=== PATIENT | male | born 1945 | race Caucasian/White ===

== ENCOUNTER → 2017-01-17 | Outpatient (CLI) | payer OTHER, MEDICARE ==
[~2017-01-17] MED LIST: ATOR-54 PO; LISI10TA PO; OMEP20CA59 PO; PSYL55.43 PO
--- NOTE | 2017-01-17 11:44 | DIAGNOSTIC IMAGING REPORT ---
LEFT KNEE 4 OR MORE CLINICAL HISTORY: Left knee pain COMPARISON STUDY: None. FINDINGS: No fracture or dislocation within the left knee. Mild cartilage space narrowing within the medial compartment of the right knee consistent with degenerative change. The left knee cartilage spaces are maintained for age. Tiny osteophytes at the tibial spines and lateral patellar within the left knee. No significant knee effusion. Small focus of calcification adjacent to the left medial femoral condyle. This is likely due to an old MCL injury. IMPRESSION: 1. Minor degenerative changes within the bilateral knees. 2. No acute fracture or dislocation. 3. Suspect an old left MCL injury. Electronically signed by: Kimo Curtis M.D. 01/17/2017 11:43 AM Dictated Date/Time: 01/17/2017 11:41 AM
== END | disposition home or self-care (01) ==
LOC: C.RDSM 11:00
PROVIDERS: ATTEND Physical Medicine & Rehabilitation Sports Medicine
DX: M25.562 Pain in left knee (principal)

== ENCOUNTER → 2017-06-25 | Outpatient (CLI) | payer OTHER, MEDICARE ==
[2017-06-25 12:16] LABS: BASO % 0.9 %; BASO ABS # 0.08 K/uL (0-0.2); COMPLETE YES; EOS % 4.2 %; HEMATOCRIT 42.6 % (42-52); IG% 0.2 %; LYMPH % 22.2 %; LYMPH ABS # 1.94 K/uL (1.2-3.4); MEAN CELL VOLUME 89.7 fL (80-100); MEAN CORPUSCULAR HEMOGLOBIN 30.1 pg (25-34); MEAN CORPUSCULAR HGB CONC 33.6 g/dl (32-36); MEAN PLATELET VOLUME 10.4 fL (7.4-10.4); MONO % 8.1 %; NEUT % 64.4 %; PLATELET COUNT 137 K/uL (130-400); RED BLOOD COUNT 4.75 M/uL (4.7-6.1); WHITE BLOOD COUNT 8.73 K/uL (4.8-10.8)
[2017-06-25 12:26] LABS: ALT/SGPT 22 U/L (12-78); BLOOD UREA NITROGEN 12 mg/dl (7-18); BUN/CREATININE RATIO 15.9 (10-20); CALCIUM 8.8 mg/dl (8.5-10.1); CARBON DIOXIDE 29 mmol/L (21-32); CHLORIDE 105 mmol/L (98-107); CHOLESTEROL 91 mg/dl (0-200); CREATININE 0.74 mg/dl (0.60-1.40); GLUCOSE 100 mg/dl (70-99); POTASSIUM 4.1 mmol/L (3.5-5.1); SODIUM 138 mmol/L (136-145); TRIGLYCERIDES 41 mg/dl (0-150); VERY LOW DENSITY LIPOPROT CALC 8 mg/dl
[2017-06-25 12:38] LABS: URINE APPEARANCE CLEAR (CLEAR); URINE BILIRUBIN NEG (NEG); URINE COLOR YELLOW; URINE NITRITE NEG (NEG); URINE PH 7.5 (4.5-7.5); UROBILINOGEN NEG (NEG)
[2017-06-25 12:39] LABS: ALB/GLOB RATIO 1.3 (0.9-2); ALKALINE PHOSPHATASE 73 U/L (45-117); AST/SGOT 18 U/L (15-37); CHOLESTEROL/HDL RATIO 2.3; HDL CHOLESTEROL 40 mg/dl; LDL CHOLESTEROL CALCULATED 43 mg/dl; THYROID STIMULATING HORMONE 0.565 uIu/ml (0.300-4.500)
[2017-06-25 12:51] LABS: MANUAL MICROSCOPIC REQUIRED? NO; REVIEW REQ? NO
== END | disposition home or self-care (01) ==
LOC: C.LABBFT 09:39
PROVIDERS: ATTEND Internal Medicine Pulmonary Disease
DX: Q23.1 Congenital insufficiency of aortic valve (principal); K21.0 Gastro-esophageal reflux disease with esophagitis; E78.5 Hyperlipidemia, unspecified; I10 Essential (primary) hypertension; Z12.5 Encounter for screening for malignant neoplasm of prostate

== ENCOUNTER → 2018-06-27 | Outpatient (CLI) | payer OTHER, MEDICARE ==
[2018-06-27 13:07] LABS: BASO % 0.9 %; BASO ABS # 0.08 K/uL (0-0.2); EOS % 4.4 %; HEMATOCRIT 42.8 % (42-52); HEMOGLOBIN 14.7 g/dL (14.0-18.0); IG# 0.03 K/uL (0.00-0.02); LYMPH % 22.6 %; LYMPH ABS # 2.07 K/uL (1.2-3.4); MEAN CELL VOLUME 89.4 fL (80-100); MEAN CORPUSCULAR HEMOGLOBIN 30.7 pg (25-34); MEAN CORPUSCULAR HGB CONC 34.3 g/dl (32-36); MEAN PLATELET VOLUME 11.5 fL (7.4-10.4); MONO % 7.3 %; MONO ABS # 0.67 K/uL (0.11-0.59); NEUT % 64.5 %; PLATELET COUNT 134 K/uL (130-400); RED CELL DISTRIBUTION WIDTH CV 13.5 % (11.5-14.5); RED CELL DISTRIBUTION WIDTH SD 44.2 fL (36.4-46.3); WHITE BLOOD COUNT 9.15 K/uL (4.8-10.8)
[2018-06-27 13:18] LABS: HEMOGLOBIN A1C 5.6 % (4.5-5.6)
[2018-06-27 13:33] LABS: ALBUMIN 3.6 gm/dl (3.4-5.0); ALKALINE PHOSPHATASE 81 U/L (45-117); ALT/SGPT 19 U/L (12-78); AST/SGOT 16 U/L (15-37); BLOOD UREA NITROGEN 14 mg/dl (7-18); CALCIUM 8.6 mg/dl (8.5-10.1); CARBON DIOXIDE 25 mmol/L (21-32); CHOLESTEROL 91 mg/dl (0-200); CREATININE 0.78 mg/dl (0.60-1.40); GLUCOSE 98 mg/dl (70-99); LDL CHOLESTEROL CALCULATED 44 mg/dl; POTASSIUM 4.2 mmol/L (3.5-5.1); SODIUM 135 mmol/L (136-145); TOTAL PROTEIN 6.6 gm/dl (6.4-8.2)
== END | disposition home or self-care (01) ==
LOC: C.LABBFT 08:53
PROVIDERS: ATTEND Internal Medicine Pulmonary Disease
DX: E78.5 Hyperlipidemia, unspecified (principal)

== ENCOUNTER 2022-12-19 11:41 | Inpatient (IN) ==
[2022-12-19] MEDS ORDERED: diphenhydrAMINE 50 MG/ML VIAL IV STA (12:01)
[2022-12-19] MEDS ORDERED: SODIUM CHLORIDE 0.9% 1000ML 1,000 ML IV ONE (12:01)
[2022-12-19] MEDS ORDERED: FAMOTIDINE 20MG IV PUSH 20 MG/5 ML SYR IV STA (12:01)
[2022-12-19] MEDS ORDERED: ONDANSETRON INJ 2 MG/ML 2 ML VIAL IV STA (12:01)
--- NOTE | 2022-12-19 12:14 | Emergency Department Note ---
Impression & Plan Generalized weakness, Constipation, Intractable nausea and vomiting, Acute urinary retention ED Provider Note NAME: LINNETTE MARISCAL AGE: 77 SEX: M ARRIVES VIA: Ambulance INFORMANT: Patient ED PROVIDER(S): Avtar Johansen MD CHIEF COMPLAINT: Weakness, n/v PLAN: Disposition: Admit MEDICAL DECISION MAKING: The patient is a pleasant 77-year-old gentleman with a past medical history of CAD, hypertension, hyperlipidemia, history of bioprosthetic aortic valve, GERD, who presents to the emergency department via EMS for acute onset nausea and vomiting with dizziness/generalized weakness that began approximate 2 hours prior to arrival. He reports he awoke this morning feeling well and denies any recent fevers, chills, cough, congestion, urinary symptoms. He reports he did his moves his bowels this morning and that was normal. The patient denies chest pain or focal extremity weakness. On arrival patient is uncomfortable but in no acute distress, afebrile with blood pressure 170s/80s and otherwise VS stable. He appears clinically dry. He has moderate epigastric discomfort without discrete tenderness. He has generalized weakness without focal neurologic deficits. EKG without overt acute ischemia. Chest x-ray with likely atelectasis. WBC 13.5K nonspecific. H/H and platelets within normal limits. Chemistry without metabolic acidosis. Electrolytes LFTs without significant abnormality. BUN/creatinine> 20 consistent with the patient's clinically dry appearance. High-sensitivity troponin 8.5, within normal limits. Lipase within normal limits. CT of the abdomen pelvis was performed and did not demonstrate acute intra-abdominal process. However note is made of moderate stool within the colon and rectum. On reevaluation patient did have some improvement after IV fluid hydration, Pepcid, Zofran, diphenhydramine and Compazine. However still with generalized weakness. On ambulatory trial patient did require assist which is not patient's baseline. Given the persistence of his weakness agrees with plan for admission. Suspect symptoms may be related to component of dehydration with nausea and vomiting provoked by his history of acid reflux as well as component of constipation. Case was discussed with Dr. Mathis, [facility] hospitalist, who will evaluate the patient for admission. Triage Nursing notes reviewed and agree them. Prior/outside medical records reviewed Vital Signs: reviewed Differential diagnosis: Gastroenteritis, food borne illness, infections, appendicitis, diverticulitis, inflammatory bowel disease, obstruction, GI bleed, biliary pathology, volvulus, as well as other pathologies. ER treatment provided: See below. Diagnostics interpreted by me: ECG: Sinus bradycardia, 51 bpm, no ectopy, no overt ST elevation or depression, QTc 414, QRS 88 Cardiac Monitoring: An order for continuous cardiac monitoring was placed and demonstrated Sinus bradycardia, 51 bpm, no ectopy Laboratory studies: See below Imaging studies: See below Consultation(s): Dr. Mathis, [facility] hospitalist. HPI: The patient is a pleasant 77-year-old gentleman with a past medical history of CAD, hypertension, hyperlipidemia, history of bioprosthetic aortic valve, GERD, who presents to the emergency department via EMS for acute onset nausea and vomiting with dizziness/generalized weakness that began approximate 2 hours prior to arrival. He reports he awoke this morning feeling well and denies any recent fevers, chills, cough, congestion, urinary symptoms. He reports he did his moves his bowels this morning and that was normal. The patient denies chest pain or focal extremity weakness. ROS: See above HPI for pertinent positives & negatives. A total of 10 systems reviewed and were otherwise negative. VITALS:See Below PHYSICAL EXAMINATION: GENERAL: Awake, alert, uncomfortable-appearing, in no distress HENT: Normocephalic, atraumatic. Oropharynx with dry mucous membranes and otherwise unremarkable. EYES: Normal conjunctiva. Sclera non-icteric. EOMI. No nystamgus. PEARRL. NECK: Supple. No nuchal rigidity. FROM. No JVD. RESPIRATORY: Clear to auscultation. CARDIAC: Regular rate, normal rhythm. Extremities warm and well perfused. Pulses equal. ABDOMEN: Soft, non-distended. No tenderness to palpation. No rebound or guarding. No masses. RECTAL: Deferred. MUSCULOSKELETAL: Chest examination reveals no tenderness. The back is symmetrical on inspection without obvious abnormality. There is no CVA tenderness to palpation. No joint edema. LOWER EXTREMITIES: Calves are equal size bilaterally and non-tender. No edema. No discoloration. NEURO: No focal sensory or motor deficits noted. Speech is fluent. Generalized weakness generalized weakness without focal extremity weakness. SKIN: No rash or jaundice noted. Avtar Johansen MD Past Med/Surg History Medical History Achilles tendinitis of right lower extremity Adenomatous colon polyp Atherosclerotic heart disease of [place] coronary artery without angina pectoris Chronic reflux esophagitis Compression fracture of L1 lumbar vertebra Compression fracture of L3 vertebra Diverticulosis Dyslipidemia Esophageal reflux disease Hypertension Inhibited sexual excitement Lumbar radiculopathy Mitral valve disorder Obstructive sleep apnea Prostate cancer (12/10/19) Sacroiliitis Severe obstructive sleep apnea Surgical History History of aortic valve replacement (~2011) Bioprosthetic valve - 2011 History of excision of lesion Skin cancer removed from nose History of excision of pilonidal cyst History of surgery Uvula surgery for sleep apnea Hx of colonoscopy (~2018) Sigmoid divertics; Rectal angioectasis; 4 mm polyp Family History Father , 73yo Stroke syndrome Myocardial infarction Mother , 76yo Alzheimer disease Brother No problems noted. Brother , 1/2 brother Myocardial infarction Aortic valve problem as well Brother , 1/2 brother - unknown history Medical history unknown Sister No problems noted. Sister , 1/2 sister Medical history unknown Son No problems noted. Son No problems noted. Son No problems noted. Daughter No problems noted. Social History Smoking Status: Former smoker Cigarettes Per Day: 1-2 PPD x 20yrs;Quit 1975; Second Hand Exposure: No; Hx Alcohol Use: No Hx Substance Use: No Preferred Language: Irish Communication Ability: Effective Visual Impairment: No Limitations Hearing Ability: Normal Hoister Required: No Beliefs That Will Affect Care: None marital status: Current Living Situation: Spouse and Other current occupational status: retired current occupation: Worked at [employer] Feels Safe at Home: Yes caffeine: No during the past year weight has: remained stable Assistive Devices: Glasses Allergies Allergies Allergy/AdvReac Type Severity Reaction Status Date / Time No Known Allergies Allergy Verified 12/19/22 15:47 Home Meds Home Medications Medication Instructions Recorded Confirmed cholecalciferol (vitamin D3) 50 2,000 units PO DAILY 06/16/19 12/19/22 mcg (2,000 unit) tablet magnesium 250 mg tablet 250 mg PO DAILY 12/05/19 12/19/22 ascorbic acid (vitamin C) 500 mg 1,000 mg PO DAILY 04/07/20 12/19/22 tablet potassium gluconate 595 mg (99 mg) 595 mg PO DAILY 04/07/20 12/19/22 tablet psyllium husk 3.4 gram/5.4 gram 2 tsp PO DAILY 04/07/20 12/19/22 oral powder (Metamucil) aspirin 81 mg chewable tablet 81 mg PO DAILY 04/16/22 12/19/22 glucosamine HCl 750 mg tablet 750 mg PO DAILY 04/16/22 12/19/22 atorvastatin 40 mg tablet 40 mg PO DAILY 12/19/22 12/19/22 calcium carbonate 500 mg calcium 500 mg PO BID 12/19/22 12/19/22 (1,250 mg) tablet denosumab 60 mg/mL subcutaneous 60 mg subcut DIRECTED 12/19/22 12/19/22 syringe (Prolia) lisinopril 5 mg tablet 5 mg PO DAILY 12/19/22 12/19/22 omeprazole 20 mg capsule,delayed 20 mg PO DAILY 12/19/22 12/19/22 release zinc gluconate 50 mg tablet 50 mg PO DAILY 12/19/22 12/19/22 Previous Rx's Medication Instructions Recorded BiPap Machine #1 [id number] 03/16/21 Results & Data (ED) Vital Signs Vital Signs - 24 hr 12/19/22 12:33 12/19/22 15:06 12/19/22 15:08 Pulse Rate 67 Pulse Rate [Apical] 65 Pulse Rate from SpO2 Sensor Respiratory Rate 20 18 Respiratory Effort / Characteristics Non-Labored Spontaneous Non-Labored Respiratory Depth Normal Normal Respiratory Pattern Regular Blood Pressure 174/81 H Blood Pressure [Right Arm] 139/66 Blood Pressure Mean 112 Blood Pressure Mean [Right Arm] 90 Pulse Oximetry 97 94 95 Oxygen Delivery Method Room Air Sepsis Recent Fever Within 48 Hours No Sepsis New/Unexplained Change in Mental Status N/A Sepsis Action Taken by Nursing No Action Required 12/19/22 12:44 12/19/22 13:00 12/19/22 15:02 Pulse Rate 61 57 L 65 Pulse Rate [Apical] Pulse Rate from SpO2 Sensor Respiratory Rate 19 18 14 Respiratory Effort / Characteristics Respiratory Depth Respiratory Pattern Blood Pressure Blood Pressure [Right Arm] Blood Pressure Mean Blood Pressure Mean [Right Arm] Pulse Oximetry Oxygen Delivery Method Sepsis Recent Fever Within 48 Hours Sepsis New/Unexplained Change in Mental Status Sepsis Action Taken by Nursing 12/19/22 15:08 12/19/22 15:08 12/19/22 15:30 Pulse Rate 56 L Pulse Rate [Apical] Pulse Rate from SpO2 Sensor 58 L Respiratory Rate 14 Respiratory Effort / Characteristics Respiratory Depth Respiratory Pattern Blood Pressure 139/66 137/69 Blood Pressure [Right Arm] Blood Pressure Mean 90 91 Blood Pressure Mean [Right Arm] Pulse Oximetry 96 Oxygen Delivery Method Sepsis Recent Fever Within 48 Hours Sepsis New/Unexplained Change in Mental Status Sepsis Action Taken by Nursing 12/19/22 15:30 12/19/22 16:00 12/19/22 16:00 Pulse Rate 55 L 58 L Pulse Rate [Apical] Pulse Rate from SpO2 Sensor 55 L 58 L Respiratory Rate 15 13 Respiratory Effort / Characteristics Respiratory Depth Respiratory Pattern Blood Pressure 153/70 H Blood Pressure [Right Arm] Blood Pressure Mean 97 Blood Pressure Mean [Right Arm] Pulse Oximetry 97 95 Oxygen Delivery Method Sepsis Recent Fever Within 48 Hours Sepsis New/Unexplained Change in Mental Status Sepsis Action Taken by Nursing 12/19/22 16:30 12/19/22 16:30 Pulse Rate 56 L Pulse Rate [Apical] Pulse Rate from SpO2 Sensor 56 L Respiratory Rate 18 Respiratory Effort / Characteristics Respiratory Depth Respiratory Pattern Blood Pressure 139/67 Blood Pressure [Right Arm] Blood Pressure Mean 91 Blood Pressure Mean [Right Arm] Pulse Oximetry 94 Oxygen Delivery Method Sepsis Recent Fever Within 48 Hours Sepsis New/Unexplained Change in Mental Status Sepsis Action Taken by Nursing Laboratory Data Attestation: I reviewed the patient's lab results. 12/19/22 11:55 12/19/22 11:55 Lab Results 12/19/22 12/19/22 12/19/22 Range/Units 11:55 11:55 12:22 WBC 13.54 H (4.8-10.8) K/ul RBC 5.04 (4.70-6.10) M/uL Hgb 15.2 (14.0-18.0) g/dl POC Hgb 15.3 (14.0-18.0) g/dl Hct 43.3 (42.0-52.0) % POC Hct 45 (42-52) % MCV 85.9 (80.0-100.0) fL MCH 30.2 (25.0-34.0) pg MCHC 35.1 (32.0-36.0) g/dL RDW Std Deviation 39.8 (36.4-46.3) fL RDW Coeff of Lucina 13.0 (11.5-14.5) % Plt Count 182 (130-400) K/uL MPV 10.4 (9.4-12.4) fL Immature Gran % (Auto) 1.5 % Neut % (Auto) 69.7 % Lymph % (Auto) 20.2 % Loving % (Auto) 6.1 % Eos % (Auto) 1.8 % Baso % (Auto) 0.7 % Neut # (Auto) 9.45 H (1.40-6.50) K/uL Lymph # (Auto) 2.74 (1.2-3.4) K/uL Loving # (Auto) 0.82 H (0.11-0.59) K/uL Eos # (Auto) 0.24 (0-0.50) K/uL Baso # (Auto) 0.09 (0-0.2) K/uL Immature Gran # (Auto) 0.20 (0.01-0.20) K/uL POC Sodium 139 (135-144) mmol/L Sodium 139 (136-145) mmol/L POC Potassium 3.6 (3.3-5.0) mmol/L Potassium 3.7 (3.5-5.1) mmol/L POC Chloride 105 (101-112) mmol/L Chloride 106 (98-107) mmol/L Carbon Dioxide 23 (21-32) mmol/L POC Total CO2 22 L (24-31) mmol/L Anion Gap 10 (3-11) POC Anion Gap 16.0 (16-25) mmol/L POC BUN 16 (7-18) mg/dl BUN 18 (6-23) mg/dl Creatinine 0.81 (0.6-1.4) mg/dl POC Creatinine 0.8 (0.6-1.3) mg/dl Est Cr Clr Drug Dosing 77.6 ml/min Est GFR ( Amer) 98.7 ml/min Est GFR (Non-Af Amer) 85.1 ml/min BUN/Creatinine Ratio 22.2 H (10-20) Glucose 170 H (70-99(Fasting)) mg/dl POC Glucose (other) 173 H (70-99) mg/dl Calcium 9.3 (8.5-10.1) mg/dl POC Ioniz Calcium [place] 1.16 (1.12-1.32) mmol/l Phosphorus 2.9 (2.5-4.9) mg/dl Magnesium 2.0 (1.7-2.4) mg/dl Total Bilirubin 0.9 (0.2-1.0) mg/dl AST 18 (13-39) U/L ALT 17 (7-52) U/L Alkaline Phosphatase 89 (34-104) U/L Troponin I High Sens 8.5 (0-20) pg/ml Total Protein 7.1 (6.0-8.3) gm/dl Albumin 4.1 (3.4-5.0) gm/dl Globulin 3.0 (2.5-4.0) gm/dl Albumin/Globulin Ratio 1.4 (0.9-2) Lipase 40 (11-82) U/L Urine Color Urine Appearance (Clear) Urine pH (4.5-7.5) Ur Specific [place] (1.000-1.030) Urine Protein (Negative) Urine Glucose (UA) (Negative) Urine Ketones (Negative) Urine Blood (Negative) Urine Nitrite (Negative) Urine Bilirubin (Negative) Urine Urobilinogen (Negative) Ur Leukocyte Esterase (Negative) SARS-CoV-2, RNA, NAAT (NEGATIVE) 12/19/22 12/19/22 Range/Units 13:39 15:03 WBC (4.8-10.8) K/ul RBC (4.70-6.10) M/uL Hgb (14.0-18.0) g/dl POC Hgb (14.0-18.0) g/dl Hct (42.0-52.0) % POC Hct (42-52) % MCV (80.0-100.0) fL MCH (25.0-34.0) pg MCHC (32.0-36.0) g/dL RDW Std Deviation (36.4-46.3) fL RDW Coeff of Lucina (11.5-14.5) % Plt Count (130-400) K/uL MPV (9.4-12.4) fL Immature Gran % (Auto) % Neut % (Auto) % Lymph % (Auto) % Loving % (Auto) % Eos % (Auto) % Baso % (Auto) % Neut # (Auto) (1.40-6.50) K/uL Lymph # (Auto) (1.2-3.4) K/uL Loving # (Auto) (0.11-0.59) K/uL Eos # (Auto) (0-0.50) K/uL Baso # (Auto) (0-0.2) K/uL Immature Gran # (Auto) (0.01-0.20) K/uL POC Sodium (135-144) mmol/L Sodium (136-145) mmol/L POC Potassium (3.3-5.0) mmol/L Potassium (3.5-5.1) mmol/L POC Chloride (101-112) mmol/L Chloride (98-107) mmol/L Carbon Dioxide (21-32) mmol/L POC Total CO2 (24-31) mmol/L Anion Gap (3-11) POC Anion Gap (16-25) mmol/L POC BUN (7-18) mg/dl BUN (6-23) mg/dl Creatinine (0.6-1.4) mg/dl POC Creatinine (0.6-1.3) mg/dl Est Cr Clr Drug Dosing ml/min Est GFR ( Amer) ml/min Est GFR (Non-Af Amer) ml/min BUN/Creatinine Ratio (10-20) Glucose (70-99(Fasting)) mg/dl POC Glucose (other) (70-99) mg/dl Calcium (8.5-10.1) mg/dl POC Ioniz Calcium [place] (1.12-1.32) mmol/l Phosphorus (2.5-4.9) mg/dl Magnesium (1.7-2.4) mg/dl Total Bilirubin (0.2-1.0) mg/dl AST (13-39) U/L ALT (7-52) U/L Alkaline Phosphatase (34-104) U/L Troponin I High Sens (0-20) pg/ml Total Protein (6.0-8.3) gm/dl Albumin (3.4-5.0) gm/dl Globulin (2.5-4.0) gm/dl Albumin/Globulin Ratio (0.9-2) Lipase (11-82) U/L Urine Color Yellow Urine Appearance Clear (Clear) Urine pH 6.5 (4.5-7.5) Ur Specific [place] 1.012 (1.000-1.030) Urine Protein Negative (Negative) Urine Glucose (UA) Negative (Negative) Urine Ketones Trace H (Negative) Urine Blood Negative (Negative) Urine Nitrite Negative (Negative) Urine Bilirubin Negative (Negative) Urine Urobilinogen Negative (Negative) Ur Leukocyte Esterase Negative (Negative) SARS-CoV-2, RNA, NAAT NEGATIVE (NEGATIVE) Administered Medications Calcium Carbonate (Calcium Carbonate 500 Mg Chewable Tab) 500 mg PO BID ANNEMARIE Stop: 01/18/23 20:59 Last Admin: 12/19/22 20:48 Dose: 500 mg Documented By: KENROY Sodium Chloride (Nss 1000ml) 1,000 mls @ 80 mls/hr IV .[id number] ANNEMARIE Stop: 01/18/23 17:36 Last Admin: 12/19/22 18:22 Dose: 80 mls/hr Documented By: STACEY Ondansetron HCl (Ondansetron Inj 2 Mg/Ml 2 Ml Vial) 4 mg IV Q6H PRN PRN Reason: Nausea Stop: 01/18/23 17:36 Last Admin: 12/20/22 00:47 Dose: 4 mg Documented By: KENROY Discontinued Medications Diphenhydramine HCl (Diphenhydramine 50 Mg/Ml Vial) 12.5 mg IV NOW STA Stop: 12/19/22 12:02 Last Admin: 12/19/22 12:11 Dose: 12.5 mg Documented By: KARMEN Glycerin (Glycerin Adult 12 Supp/Box Supp) 1 supp TX NOW ONE Stop: 12/19/22 15:25 Last Admin: 12/19/22 15:46 Dose: 1 supp Documented By: STACEY Sodium Chloride (Nss 1000ml) 1,000 mls @ 999 mls/hr IV .[id number] ONE Stop: 12/19/22 13:01 Last Infusion: 12/19/22 13:23 Dose: 0 mls/hr Documented By: Admin: 12/19/22 12:09 Dose: 999 mls/hr Documented By: KARMEN Famotidine (Pepcid 20mg Iv Push) 20 mg in 5 mls @ 2.5 mls/min IV NOW STA Stop: 12/19/22 12:02 Last Admin: 12/19/22 12:12 Dose: 2.5 mls/min Documented By: KARMEN Prochlorperazine (Compazine) 1 mls @ 1 mls/min IV ONE ONE Stop: 12/19/22 13:42 Last Admin: 12/19/22 13:49 Dose: 1 mls/min Documented By: ROSE Ioversol (Optiray 350 100ml) 84 ml IV ONCE ONE Stop: 12/19/22 14:03 Last Admin: 12/19/22 14:02 Dose: 84 ml Documented By: NURYS Ondansetron HCl (Ondansetron Inj 2 Mg/Ml 2 Ml Vial) 4 mg IV NOW STA Stop: 12/19/22 12:02 Last Admin: 12/19/22 12:13 Dose: 4 mg Documented By: KARMEN Imaging Data Radiologist's Impression: Chest X-Ray 12/19/22 12:01 XR chest 1V portable CLINICAL HISTORY: Chest pain, nonspecific COMPARISON STUDY: Chest radiograph January 15, 2019. FINDINGS: Lung volumes are mildly diminished. There is no pneumothorax or pleural effusion. Bibasilar opacities favor atelectasis. There are median sternotomy wires. Cardiomegaly is noted with pulmonary vascular congestion. There is no evidence for overt pulmonary edema. Right suprahilar fullness is present. IMPRESSION: 1. Cardiomegaly with pulmonary vascular congestion. 2. Bibasilar opacities suggestive of atelectasis. 3. Right suprahilar fullness. This likely reflects pulmonary vessels but can be assessed with follow-up PA and lateral chest radiographs. ACT 112: Negative or not required by law. Electronically signed by: Antelmo Santos M.D. 12/19/2022 12:55 PM Abdomen/Pelvis CT 12/19/22 12:10 CT OF THE ABDOMEN AND PELVIS WITH CONTRAST CLINICAL HISTORY: Abdominal pain, nausea and vomiting. COMPARISON STUDY: Treatment planning CT May 06, 2020. TECHNIQUE: Following IV administration of 84 mL of Optiray, axial images of the abdomen and pelvis were obtained from the lung bases to the proximal femurs. Images were reviewed in the axial, sagittal, and coronal planes. IV contrast was administered without complication. Automated exposure control was utilized for the study. A dose lowering technique was utilized adhering to the principles of ALARA. CT DOSE: 380.81 mGy.cm FINDINGS: This exam is mildly compromised by motion artifact. There is a prosthetic aortic valve. Median sternotomy wires are noted. A small hiatal hernia is present. No pneumatosis, free air or portal venous gas is present. The liver, spleen, adrenal glands, kidneys and pancreas are unremarkable. There is no biliary or pancreatic ductal dilatation. No hydronephrosis. Excreted contrast within the collecting systems is noted. Colonic diverticulosis is noted without evidence for acute diverticulitis. A moderate amount of stool within the colon is present. Small bowel loops slightly extends into a left inguinal hernia. There is no resultant bowel obstruction. Fat-containing right inguinal hernia is present. The appendix is normal. A 3.1 cm infrarenal abdominal aortic aneurysm is present. There is no abdominal or pelvic lymphadenopathy. There are fiducial markers within the prostate. No suspicious osseous lesions are identified within visualized skeletal structures. There are old L1 and L3 compression fractures, similar to MRI June 07, 2022. There is a mild compression fracture of the superior endplate of T11. This is age indeterminate. IMPRESSION: 1. No acute process within the abdomen or pelvis. 2. Moderate amount of stool within the rectum. No evidence for a bowel obstruction. 3. Colonic diverticulosis. No evidence for acute diverticulitis. 4. Mild T11 compression fracture which is subacute to acute. Old L1 and L3 compression fractures. 5. 3.1 cm infrarenal abdominal aortic aneurysm. 6. Bilateral inguinal hernias. Loop of small bowel extends into the left internal hernia without resultant bowel obstruction. ACT 112: Negative or not required by law. Electronically signed by: Antelmo Santos M.D. 12/19/2022 2:33 PM Discharge Plan Visit Data Chief Complaint: Vomiting Stated Complaint: NAUSEA, VOMITING, DIZZINESS ED Provider: Avtar Johansen Discharge Problem: Generalized weakness, Constipation, Intractable nausea and vomiting, Acute urinary retention Patient Disposition: Admitted As Inpatient Discharge Instructions Interventions: ED Discharge Assessment Last Done: 12/19/22 17:38
--- NOTE | 2022-12-19 12:23 | Electrocardiogram Report ---
Test Reason : Blood Pressure : / mmHG Vent. Rate : 051 BPM Atrial Rate : 051 BPM P-R Int : 196 ms QRS Dur : 088 ms QT Int : 450 ms P-R-T Axes : 061 035 057 degrees QTc Int : 414 ms Poor data quality, interpretation may be adversely affected Sinus bradycardia Left atrial enlargement Borderline ECG No previous ECGs available Confirmed by Tian Camarillo ([id number]) on 12/19/2022 12:23:44 PM Referred By: REFERRED SELF Confirmed By:Tian Camarillo
[2022-12-19 12:38] LABS: iSTAT Creatinine 0.8 mg/dl (0.6-1.3); iSTAT Hemoglobin 15.3 g/dl (14.0-18.0); iSTAT Ionized Calcium 1.16 mmol/l (1.12-1.32); iSTAT Potassium 3.6 mmol/L (3.3-5.0)
[2022-12-19 12:42] LABS: Basophils # (auto) 0.09 K/uL (0-0.2); Basophils % (auto) 0.7 %; Eosinophils # (auto) 0.24 K/uL (0-0.50); Eosinophils % (auto) 1.8 %; Hematocrit (blood only) 43.3 % (42.0-52.0); Hemoglobin 15.2 g/dl (14.0-18.0); Immature Granulocytes % (auto) 1.5 %; Lymphocytes # (auto) 2.74 K/uL (1.2-3.4); Lymphocytes % (auto) 20.2 %; Mean Corpuscular Hemoglobin 30.2 pg (25.0-34.0); Mean Corpuscular Hgb Conc 35.1 g/dL (32.0-36.0); Mean Corpuscular Volume 85.9 fL (80.0-100.0); Mean Platelet Volume 10.4 fL (9.4-12.4); Monocytes # (auto) 0.82 K/uL (0.11-0.59); Monocytes % (auto) 6.1 %; Neutrophils # (auto) 9.45 K/uL (1.40-6.50); Neutrophils % (auto) 69.7 %; Platelet Count 182 K/uL (130-400); RDW Standard Deviation 39.8 fL (36.4-46.3); Red Blood Count 5.04 M/uL (4.70-6.10); White Blood Count 13.54 K/ul (4.8-10.8)
--- NOTE | 2022-12-19 12:57 | XRay Report ---
XR chest 1V portable CLINICAL HISTORY: Chest pain, nonspecific COMPARISON STUDY: Chest radiograph January 15, 2019. FINDINGS: Lung volumes are mildly diminished. There is no pneumothorax or pleural effusion. Bibasilar opacities favor atelectasis. There are median sternotomy wires. Cardiomegaly is noted with pulmonary vascular congestion. There is no evidence for overt pulmonary edema. Right suprahilar fullness is pr esent. IMPRESSION: 1. Cardiomegaly with pulmonary vascular congestion. 2. Bibasilar opacities suggestive of atelectasis. 3. Right suprahilar fullness. This likely reflects pulmonary vessels but can be assessed with follow- up PA and lateral chest radiographs. ACT 112: Negative or not required by law. Electronically signed by: Antelmo Santos M.D. 12/19/2022 12:55 PM
[2022-12-19 13:04] LABS: Albumin Globulin Ratio 1.4 (0.9-2); Albumin Level 4.1 gm/dl (3.4-5.0); BUN Creatinine Ratio 22.2 (10-20); Bilirubin,Total 0.9 mg/dl (0.2-1.0); Calcium 9.3 mg/dl (8.5-10.1); Creatinine Clr Calc Pharmacy 77.6 ml/min; Est GFR (African American) 98.7 ml/min; Est GFR (Non-African American) 85.1 ml/min; Phosphorus 2.9 mg/dl (2.5-4.9); Potassium 3.7 mmol/L (3.5-5.1); Total Protein 7.1 gm/dl (6.0-8.3)
[2022-12-19 13:07] LABS: Troponin I High Sensitivity 8.5 pg/ml (0-20)
[2022-12-19] MEDS ORDERED: PROCHLORPERAZINE 1 ML IV ONE (13:41)
[2022-12-19] MEDS ORDERED: OPTIRAY 350 100ml IV ONE (14:02)
--- NOTE | 2022-12-19 14:34 | CT Scan Report ---
CT OF THE ABDOMEN AND PELVIS WITH CONTRAST CLINICAL HISTORY: Abdominal pain, nausea and vomiting. COMPARISON STUDY: Treatment planning CT May 06, 2020. TECHNIQUE: Following IV administration of 84 mL of Optiray, axial images of the abdomen and pelvis we re obtained from the lung bases to the proximal femurs. Images were reviewed in the axial, sagittal, and coronal planes. IV contrast was administered without complication. Automated exposure control wa s utilized for the study. A dose lowering technique was utilized adhering to the principles of ALARA . CT DOSE: 380.81 mGy.cm FINDINGS: This exam is mildly compromised by motion artifact. There is a prosthetic aortic valve. Med rachelle sternotomy wires are noted. A small hiatal hernia is present. No pneumatosis, free air or portal venous gas is present. The liver, spleen, adrenal glands, kidneys and pancreas are unremarkable. Ther e is no biliary or pancreatic ductal dilatation. No hydronephrosis. Excreted contrast within the zuri ecting systems is noted. Colonic diverticulosis is noted without evidence for acute diverticulitis. A moderate amount of stool within the colon is present. Small bowel loops slightly extends into a left inguinal hernia. There is no resultant bowel obstruction. Fat-containing right inguinal hernia is pr esent. The appendix is normal. A 3.1 cm infrarenal abdominal aortic aneurysm is present. There is no abdominal or pelvic lymphadenopathy. There are fiducial markers within the prostate. No suspicious os seous lesions are identified within visualized skeletal structures. There are old L1 and L3 compressi on fractures, similar to MRI June 07, 2022. There is a mild compression fracture of the superior endp late of T11. This is age indeterminate. IMPRESSION: 1. No acute process within the abdomen or pelvis. 2. Moderate amount of stool within the rectum. No evidence for a bowel obstruction. 3. Colonic diverticulosis. No evidence for acute diverticulitis. 4. Mild T11 compression fracture which is subacute to acute. Old L1 and L3 compression fractures. 5. 3.1 cm infrarenal abdominal aortic aneurysm. 6. Bilateral inguinal hernias. Loop of small bowel extends into the left internal hernia without resu ltant bowel obstruction. ACT 112: Negative or not required by law. Electronically signed by: Antelmo Santos M.D. 12/19/2022 2:33 PM
[2022-12-19] MEDS ORDERED: GLYCERIN ADULT 12 SUPP/BOX SUPP PR ONE (15:24)
[2022-12-19 16:18] LABS: Appearance Urine Clear (Clear); Bilirubin Urine Negative (Negative); Blood Urine Negative (Negative); Color Urine Yellow; Glucose Urine UA Negative (Negative); Ketones Urine Trace (Negative); Leukocyte Esterase Urine Negative (Negative); Nitrite Urine Negative (Negative); Protein Urine Negative (Negative); Specific Gravity Urine 1.012 (1.000-1.030); Urobilinogen Urine Negative (Negative); pH Urine 6.5 (4.5-7.5)
--- NOTE | 2022-12-19 17:16 | History & Physical Report ---
Date of Service December 19, 2022 Assessment & Plan (1) Acute gastritis: Plan: Patient was admitted to the hospital on account of acute nausea and vomiting. Most likely acute viral gastritis. CT scan abdomen pelvis did not show any acute pathology. Continue supportive management IV normal saline 100 cc/h Diet as tolerated (2) Osteoporosis: Plan: History of osteoporosis, On Prolia at home, continue (3) Compression fracture of L3 vertebra: Plan: Has suffered L3 and L1 compression fractures Probably from osteoporosis or from radiotherapy of his prostate cancer (4) Prostate cancer: Plan: Currently in remission Status post radiotherapy (5) Hypertension: Plan: Blood pressures under good control On lisinopril at home, continue (6) Weakness: Plan: Generalized weakness Most likely from dehydration PT OT Plan Monitor overnight History of Present Illness Chief Complaint: weakness, nausea and vomitting Primary Care Provider: Reginald Munoz MD This is a 77-year-old male with a history of prostate cancer, status post radiotherapy, hypertension, hyperlipidemia, bioprosthetic aortic valve, who presents to the hospital today on account of acute onset of nausea vomiting. Most of the history was obtained from the patient's who was at the bedside and also ED physician. According to the patient's , [facility] and noticed that he was beginning to feel uncomfortable with generalized weakness so he asked the to call 911. Before the arrival of the squad, he had had an episode of vomiting and was feeling chills. Upon arrival at the emergency department basic labs were within normal limits, CBC BMP, chest x-ray did not show any acute pathology, EKG was normal, u rinalysis did not show any evidence of UTI. CT abdomen pelvis did not show any acute pathology. However upon ambulation patient felt so weak and could not ambulate which was noted his baseline according to reports. Decision was made to admit him to the hospital for further management. Allergies Allergy/AdvReac Type Severity Reaction Status Date / Time No Known Allergies Allergy Verified 12/19/22 15:47 Home Medications Medication Instructions Recorded Confirmed Type cholecalciferol (vitamin D3) 50 2,000 units PO DAILY 06/16/19 12/19/22 History mcg (2,000 unit) tablet magnesium 250 mg tablet 250 mg PO DAILY 12/05/19 12/19/22 History ascorbic acid (vitamin C) 500 mg 1,000 mg PO DAILY 04/07/20 12/19/22 History tablet potassium gluconate 595 mg (99 mg) 595 mg PO DAILY 04/07/20 12/19/22 History tablet psyllium husk 3.4 gram/5.4 gram 2 tsp PO DAILY 04/07/20 12/19/22 History oral powder (Metamucil) BiPap Machine #1 ea 03/16/21 11/29/22 Rx aspirin 81 mg chewable tablet 81 mg PO DAILY 04/16/22 12/19/22 History glucosamine HCl 750 mg tablet 750 mg PO DAILY 04/16/22 12/19/22 History atorvastatin 40 mg tablet 40 mg PO DAILY 12/19/22 12/19/22 History calcium carbonate 500 mg calcium 500 mg PO BID 12/19/22 12/19/22 History (1,250 mg) tablet denosumab 60 mg/mL subcutaneous 60 mg subcut DIRECTED 12/19/22 12/19/22 History syringe (Prolia) lisinopril 5 mg tablet 5 mg PO DAILY 12/19/22 12/19/22 History omeprazole 20 mg capsule,delayed 20 mg PO DAILY 12/19/22 12/19/22 History release zinc gluconate 50 mg tablet 50 mg PO DAILY 12/19/22 12/19/22 History Past Med/Surg History Medical History Achilles tendinitis of right lower extremity Adenomatous colon polyp Atherosclerotic heart disease of [place] coronary artery without angina pectoris Chronic reflux esophagitis Compression fracture of L1 lumbar vertebra Compression fracture of L3 vertebra Diverticulosis Dyslipidemia Esophageal reflux disease Hypertension Inhibited sexual excitement Lumbar radiculopathy Mitral valve disorder Obstructive sleep apnea Prostate cancer (12/10/19) Sacroiliitis Severe obstructive sleep apnea Surgical History History of aortic valve replacement (~2011) History of excision of lesion History of excision of pilonidal cyst History of surgery Hx of colonoscopy (~2018) Family History Father , 73yo Stroke syndrome Myocardial infarction Mother , 76yo Alzheimer disease Brother No problems noted. Brother , 1/2 brother Myocardial infarction Aortic valve problem as well Brother , 1/2 brother - unknown history Medical history unknown Sister No problems noted. Sister , 1/2 sister Medical history unknown Son No problems noted. Son No problems noted. Son No problems noted. Daughter No problems noted. 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 Physical Exam Physical Exam: The patient is awake, lethargic HEENT--PERRL, EOMI, mucous membranes and oropharynx mildly dry Neck--supple. No JVD. No bruits. Thyroid normal, trachea midline, no adenopathy. Heart--normal S1 and S2. No murmurs, rubs or gallops. Lungs--clear bilaterally, no respiratory distress, no accessory muscle use. Abdomen--normal bowel sounds and soft. Mild epigastric and left sided abdominal pain Extremities--no cyanosis or clubbing. No edema. Dermatologic--normal skin turgor, normal color, no abnormal lymph nodes, no rash. Neurologic--cranial nerves II through XII grossly intact. Rheumatologic--normal range of motion. Psychiatric--normal affect. Results & Data Results & Data ([facility]) Vital Signs (Past 12 Hours) Vital Signs Pulse Pulse Resp BP BP Pulse Ox O2 Del Method 12/19/22 15:08 95 12/19/22 15:06 65 18 139/66 94 12/19/22 12:33 67 20 174/81 H 97 Room Air Code Status & VTE Plan VTE Prophylaxis Plan VTE Prophylaxis will be ordered: Yes PG Care Time/CCT Total # of Minutes Spent Total Time Spent with Patient: Total time spent is greater than 50% in coordination of care (as documented) at patient's floor/unit and/or counseling patient: Coding Level of Care Code 74067 INT INP/OBS CARE 3/75MIN Diagnoses Acute gastritis K29.00 Osteoporosis M81.0 Compression fracture of L3 vertebra S32.030A Prostate cancer C61 Hypertension I10 Weakness R53.1 Time Spent (min) 70
[2022-12-19] MEDS ORDERED: ACETAMINOPHEN 325 MG TAB PO PRN (17:37)
[2022-12-19] MEDS: SODIUM CHLORIDE 0.9% 1000ML 1,000 ML IV SCH (18:22)
[2022-12-19] MEDS: CALCIUM CARBONATE 500 MG CHEWABLE TAB PO SCH (20:48)
[2022-12-20] MEDS: ONDANSETRON INJ 2 MG/ML 2 ML VIAL IV PRN ×2 (00:47→07:31)
[2022-12-20] MEDS: SODIUM CHLORIDE 0.9% 1000ML 1,000 ML IV SCH ×2 (05:24→15:57)
[2022-12-20] MEDS: CALCIUM CARBONATE 500 MG CHEWABLE TAB PO SCH ×2 (08:12→20:29)
[2022-12-20] MEDS: CHOLECALCIFEROL 1,000 UNITS 25 MCG TAB PO SCH (08:13)
[2022-12-20] MEDS: ATORVASTATIN 40 MG TAB PO SCH (08:13)
[2022-12-20] MEDS: PSYLLIUM or GUAR GUM FIBER POWDER PACKET PO SCH (08:13)
[2022-12-20 08:14] LABS: Hematocrit (blood only) 41.9 % (42.0-52.0); Hemoglobin 14.6 g/dl (14.0-18.0); Mean Corpuscular Hemoglobin 30.1 pg (25.0-34.0); Mean Corpuscular Hgb Conc 34.8 g/dL (32.0-36.0); Mean Corpuscular Volume 86.4 fL (80.0-100.0); Mean Platelet Volume 10.2 fL (9.4-12.4); Platelet Count 144 K/uL (130-400); RDW Coefficient of Variation 12.9 % (11.5-14.5); RDW Standard Deviation 40.3 fL (36.4-46.3); Red Blood Count 4.85 M/uL (4.70-6.10); White Blood Count 14.53 K/ul (4.8-10.8)
[2022-12-20] MEDS: ASPIRIN 81 MG CHEW PO SCH (08:14)
[2022-12-20] MEDS: ZINC SULFATE 220 MG CAPSULE PO SCH (08:14)
[2022-12-20] MEDS: lisinopril 5 MG TAB PO SCH (08:14)
[2022-12-20] MEDS: MAGNESIUM OXIDE 400 MG TAB PO SCH (08:14)
[2022-12-20] MEDS: POTASSIUM CHLORIDE 10 MEQ TABCR PO SCH (08:14)
[2022-12-20] MEDS: PANTOprazole 40 MG TAB PO SCH (08:14)
[2022-12-20 08:27] LABS: BUN Creatinine Ratio 16.7 (10-20); Calcium 8.1 mg/dl (8.5-10.1); Creatinine Clr Calc Pharmacy 87.3 ml/min; Est GFR (African American) 103.6 ml/min; Est GFR (Non-African American) 89.3 ml/min; Potassium 3.7 mmol/L (3.5-5.1)
[2022-12-20] MEDS ORDERED: ASCORBIC ACID 500 MG TAB PO SCH (09:00)
[2022-12-20] MEDS ORDERED: GLUCOSAMINE HCL 750 MG PO SCH (09:00)
--- NOTE | 2022-12-20 14:15 | Hospitalist Progress Note ---
Date of Service December 20, 2022 Assessment & Plan (1) Acute gastritis: Plan: Patient was admitted to the hospital on account of acute nausea and vomiting. Most likely acute viral gastritis. CT scan abdomen pelvis did not show any acute pathology. Chest x ray was normal, urinalysis did not suggest UTI He feels better today Continue supportive management IV normal saline 80 cc/h Diet as tolerated PRN Zofran for nausea (2) Osteoporosis: Plan: History of osteoporosis, On Prolia at home, continue (3) Compression fracture of L3 vertebra: Plan: Has suffered L3 and L1 compression fractures Probably from osteoporosis or from radiotherapy of his prostate cancer (4) Prostate cancer: Plan: Currently in remission Status post radiotherapy (5) Hypertension: Plan: Blood pressures under good control On lisinopril at home, continue (6) Weakness: Plan: Generalized weakness Most likely from dehydration PT OT Plan Monitor overnight Admission and Anticipated Discharge Date Admission Date: December 19, 2022 Subjective patient seen and examined, feels better Review of Systems Review of Systems: All systems reviewed are negative, apart from the ones contained in the history. Physical Exam Physical Exam: The patient is awake, lethargic HEENT--PERRL, EOMI, mucous membranes and oropharynx mildly dry Neck--supple. No JVD. No bruits. Thyroid normal, trachea midline, no adeno ashli. Heart--normal S1 and S2. No murmurs, rubs or gallops. Lungs--clear bilaterally, no respiratory distress, no accessory muscle use. Abdomen--normal bowel sounds and soft. Mild epigastric and left sided abdominal pain Extremities--no cyanosis or clubbing. No edema. Dermatologic--normal skin turgor, normal color, no abnormal lymph nodes, no rash. Neurologic--cranial nerves II through XII grossly intact. Rheumatologic--normal range of motion. Psychiatric--normal affect. Results & Data Results & Data ([facility]) Vital Signs (Past 12 Hours) Vital Signs Temp Pulse Resp BP Pulse Ox O2 Del Method 12/20/22 07:50 98.2 F 75 16 114/80 95 Room Air PG Care Time/CCT Total # of Minutes Spent Total Time Spent with Patient: Total time spent is greater than 50% in coordination of care (as documented) at patient's floor/unit and/or counseling patient: Coding Level of Care Code 77534 SUB INP/OBS CARE 2/35MIN Diagnoses Acute gastritis K29.00 Osteoporosis M81.0 Compression fracture of L3 vertebra S32.030A Prostate cancer C61 Hypertension I10 Weakness R53.1 Time Spent (min) 35
[2022-12-21] MEDS: SODIUM CHLORIDE 0.9% 1000ML 1,000 ML IV SCH ×2 (04:18→18:21)
[2022-12-21] MEDS: ONDANSETRON INJ 2 MG/ML 2 ML VIAL IV PRN ×2 (08:46→18:23)
[2022-12-21] MEDS: PANTOprazole 40 MG TAB PO SCH (08:47)
[2022-12-21] MEDS: CHOLECALCIFEROL 1,000 UNITS 25 MCG TAB PO SCH (08:47)
[2022-12-21] MEDS: ZINC SULFATE 220 MG CAPSULE PO SCH (08:47)
[2022-12-21] MEDS: lisinopril 5 MG TAB PO SCH (08:48)
[2022-12-21] MEDS: PSYLLIUM or GUAR GUM FIBER POWDER PACKET PO SCH (08:48)
[2022-12-21] MEDS: MAGNESIUM OXIDE 400 MG TAB PO SCH (08:48)
[2022-12-21] MEDS: ATORVASTATIN 40 MG TAB PO SCH (08:48)
[2022-12-21] MEDS: CALCIUM CARBONATE 500 MG CHEWABLE TAB PO SCH ×2 (08:49→20:11)
[2022-12-21] MEDS: POTASSIUM CHLORIDE 10 MEQ TABCR PO SCH (08:58)
[2022-12-21] MEDS: ASPIRIN 81 MG CHEW PO SCH (08:58)
[2022-12-21 09:15] LABS: BUN Creatinine Ratio 16.3 (10-20); Calcium 8.3 mg/dl (8.5-10.1); Creatinine Clr Calc Pharmacy 73.1 ml/min; Est GFR (African American) 96.3 ml/min; Est GFR (Non-African American) 83.1 ml/min
[2022-12-21 09:38] LABS: Hematocrit (blood only) 44.5 % (42.0-52.0); Hemoglobin 15.4 g/dl (14.0-18.0); Mean Corpuscular Hemoglobin 30.8 pg (25.0-34.0); Mean Corpuscular Hgb Conc 34.6 g/dL (32.0-36.0); Mean Platelet Volume 10.2 fL (9.4-12.4); Platelet Count 142 K/uL (130-400); RDW Coefficient of Variation 13.1 % (11.5-14.5); RDW Standard Deviation 42.5 fL (36.4-46.3); White Blood Count 12.22 K/ul (4.8-10.8)
[2022-12-21] MEDS ORDERED: PROMETHAZINE HCL 12.5 MG in SODIUM CHLORIDE 0.9% 50 ML IV STA (11:01)
--- NOTE | 2022-12-21 12:25 | Hospitalist Progress Note ---
Date of Service December 21, 2022 Assessment & Plan (1) Acute gastritis: Plan: Patient was admitted to the hospital on account of acute nausea and vomiting. Most likely acute viral gastritis. CT scan abdomen pelvis did not show any acute pathology. Chest x ray was normal, urinalysis did not suggest UTI He feels better today, but still with bouts of nausea Continue supportive management IV normal saline 80 cc/h Diet as tolerated PRN Zofran for nausea (2) Osteoporosis: Plan: History of osteoporosis, On Prolia at home, continue (3) Compression fracture of L3 vertebra: Plan: Has suffered L3 and L1 compression fractures Probably from osteoporosis or from radiotherapy of his prostate cancer (4) Prostate cancer: Plan: Currently in remission Status post radiotherapy (5) Hypertension: Plan: Blood pressures under good control On lisinopril at home, continue (6) Weakness: Plan: Generalized weakness Most likely from dehydration PT OT Plan Monitor overnight Admission and Anticipated Discharge Date Admission Date: December 21, 2022 Subjective patient seen and examined,still having bouts of nausea, especially while participating in PT Review of Systems Review of Systems: All systems reviewed are negative, apart from the ones contained in the history. Physical Exam Physical Exam: The patient is awake, lethargic HEENT--PERRL, EOMI, mucous membranes and oropharynx mildly dry Neck--supple. No JVD. No bruits. Thyroid normal, trachea midline, no adenopathy. Heart--normal S1 and S2. No murmurs, rubs or gallops. Lungs--clear bilaterally, no respiratory distress, no accessory muscle use. Abdomen--normal bowel sounds and soft. Mild epigastric and left sided abdominal pain Extremities--no cyanosis or clubbing. No edema. Dermatologic--normal skin turgor, normal color, no abnormal lymph nodes, no rash. Neurologic--cranial nerves II through XII grossly intact. Rheumatologic--normal range of motion. Psychiatric--normal affect. Results & Data Results & Data ([facility]) Vital Signs (Past 12 Hours) Vital Signs Temp Pulse BP Pulse Ox O2 Del Method 12/21/22 11:26 97.7 F 50 L 170/79 H 98 Room Air 12/21/22 07:45 97.5 F L 58 L 152/72 H 96 Room Air PG Care Time/CCT Total # of Minutes Spent Total Time Spent with Patient: Total time spent is greater than 50% in coordination of care (as documented) at patient's floor/unit and/or counseling patient: Coding Level of Care Code 34689 SUB INP/OBS CARE 2/35MIN Diagnoses Acute gastritis K29.00 Osteoporosis M81.0 Compression fracture of L3 vertebra S32.030A Prostate cancer C61 Hypertension I10 Weakness R53.1 Time Spent (min) 35
[2022-12-21] MEDS: ALUMINUM/MAGNESIUM SUSP 18 ML, LIDOCAINE VISCOUS 2% SOLN 6 ML, BARCODE IDENTIFIER 1 EACH PO ONE ×2 (12:31→18:21)
[2022-12-21] MEDS ORDERED: bisacodyL 10 MG SUPP PR STA (13:46)
[2022-12-21] MEDS ORDERED: GADOBUTROL 65ML VIAL IV ONE (17:48)
[2022-12-21] MEDS: POLYETHYLENE (MIRALAX) 17 GM PACK PO SCH (18:20)
--- NOTE | 2022-12-21 20:41 | Magnetic Resonance Report ---
Brain MRI WITH AND WITHOUT CONTRAST HISTORY: dizziness, vomiting TECHNIQUE: Multiplanar multisequence MRI of the brain was performed both before and after the intrave nous administration of contrast. COMPARISON STUDY: None. FINDINGS: Questional single punctate focus of restricted diffusion within the left cerebellar periven tricular white matter image 7 favors T2 shine through. Otherwise, no areas of restricted diffusion to suggest acute infarction. The midline structures are intact. Mild mucosal thickening within the ethm oid air cells. The mastoid air cells are clear. The orbits are unremarkable. The major vascular flow voids at the skull base are well-maintained. The ventricles and sulci demonstrate mild age-related in volutional changes. There is no mass, hematoma, midline shift. Mild periventricular white matter T2 h yperintensity is nonspecific but favors mild microvascular ischemic changes. No abnormal enhancement within the brain. IMPRESSION: 1. No acute acute infarct or intracranial hemorrhage. 2. Mild atrophy and microvascular ischemic changes. ACT 112: Negative or not required by law. Electronically signed by: Kimo Curtis M.D. 12/21/2022 8:39 PM
[2022-12-22] MEDS: SODIUM CHLORIDE 0.9% 1000ML 1,000 ML IV SCH ×2 (05:21→18:29)
[2022-12-22] MEDS: PANTOprazole 40 MG TAB PO SCH (08:32)
[2022-12-22] MEDS: lisinopril 5 MG TAB PO SCH (08:32)
[2022-12-22] MEDS: MAGNESIUM OXIDE 400 MG TAB PO SCH (08:32)
[2022-12-22] MEDS: POLYETHYLENE (MIRALAX) 17 GM PACK PO SCH (08:32)
[2022-12-22] MEDS: PSYLLIUM or GUAR GUM FIBER POWDER PACKET PO SCH (08:32)
[2022-12-22] MEDS: ATORVASTATIN 40 MG TAB PO SCH (08:32)
[2022-12-22] MEDS: CHOLECALCIFEROL 1,000 UNITS 25 MCG TAB PO SCH (08:33)
[2022-12-22] MEDS: ASPIRIN 81 MG CHEW PO SCH (08:43)
[2022-12-22] MEDS: POTASSIUM CHLORIDE 10 MEQ TABCR PO SCH (08:43)
[2022-12-22] MEDS: CALCIUM CARBONATE 500 MG CHEWABLE TAB PO SCH ×2 (08:43→20:20)
[2022-12-22] MEDS: ZINC SULFATE 220 MG CAPSULE PO SCH (08:43)
[2022-12-22 08:57] LABS: BUN Creatinine Ratio 17.5 (10-20); Calcium 8.2 mg/dl (8.5-10.1); Creatinine Clr Calc Pharmacy 78.6 ml/min; Est GFR (African American) 99.2 ml/min; Est GFR (Non-African American) 85.6 ml/min; Potassium 3.8 mmol/L (3.5-5.1)
[2022-12-22 09:02] LABS: Hematocrit (blood only) 40.3 % (42.0-52.0); Mean Corpuscular Hgb Conc 34.7 g/dL (32.0-36.0); Mean Corpuscular Volume 86.5 fL (80.0-100.0); Mean Platelet Volume 10.5 fL (9.4-12.4); Platelet Count 127 K/uL (130-400); RDW Standard Deviation 40.5 fL (36.4-46.3); Red Blood Count 4.66 M/uL (4.70-6.10); White Blood Count 11.36 K/ul (4.8-10.8)
--- NOTE | 2022-12-22 13:58 | Hospitalist Progress Note ---
Date of Service December 22, 2022 Assessment & Plan (1) Acute gastritis: Plan: Patient was admitted to the hospital on account of acute nausea and vomiting. Most likely acute viral gastritis. CT scan abdomen pelvis did not show any acute pathology. Chest x ray was normal, urinalysis did not suggest UTI He feels better today, says nausea is much better Continue supportive management IV normal saline 80 cc/h Diet as tolerated PRN Zofran for nausea (2) Dizziness: Plan: Patient now complains of dizziness, especially on ambulation There was no positive orthostatic blood pressure changes MRI brain did not show any pathology (3) Compression fracture of L3 vertebra: Plan: Has suffered L3 and L1 compression fractures Probably from osteoporosis or from radiotherapy of his prostate cancer There is also a sub acute fracture of T11 Will obtain Lumbar and Thoracic MRI given hx of prostate cancer (4) Osteoporosis: Plan: History of osteoporosis, On Prolia at home, continue (5) Prostate cancer: Plan: Currently in remission Status post radiotherapy (6) Hypertension: Plan: Blood pressures under good control On lisinopril at home, continue (7) Weakness: Plan: Generalized weakness Most likely from dehydration PT OT Plan Monitor, patient may need rehab Admission and Anticipated Discharge Date Admission Date: December 21, 2022 Subjective patient seen and examined,nausea has improved, but patient now complains of dizziness, especially on ambuation Review of Systems Review of Systems: All systems reviewed are negative, apart from the ones contained in the history. Physical Exam Physical Exam: The patient is awake, lethargic HEENT--PERRL, EOMI, mucous membranes and oropharynx mildly dry Neck--supple. No JVD. No bruits. Thyroid normal, trachea midline, no adenopathy. Heart--normal S1 and S2. No murmurs, rubs or gallops. Lungs--clear bilaterally, no respiratory distress, no accessory muscle use. Abdomen--normal bowel sounds and soft. Mild epigastric and left sided abdominal pain Extremities--no cyanosis or clubbing. No edema. Dermatologic--normal skin turgor, normal color, no abnormal lymph nodes, no rash. Neurologic--cranial nerves II through XII grossly intact. Rheumatologic--normal range of motion. Psychiatric--normal affect. Results & Data Results & Data ([facility]) Vital Signs (Past 12 Hours) Vital Signs Temp Pulse Resp BP Pulse Ox O2 Del Method 12/22/22 11:55 97.7 F 64 18 166/85 H 96 Room Air 12/22/22 08:00 Room Air 12/22/22 07:39 98.2 F 60 18 140/80 96 Room Air PG Care Time/CCT Total # of Minutes Spent Total Time Spent with Patient: Total time spent is greater than 50% in coordination of care (as documented) at patient's floor/unit and/or counseling patient: Coding Level of Care Code 35697 SUB INP/OBS CARE 2/35MIN Diagnoses Acute gastritis K29.00 Dizziness R42 Compression fracture of L3 vertebra S32.030A Osteoporosis M81.0 Prostate cancer C61 Hypertension I10 Weakness R53.1 Time Spent (min) 35
[2022-12-22] MEDS ORDERED: GADOBUTROL 65ML VIAL IV ONE (18:26)
--- NOTE | 2022-12-22 19:13 | Magnetic Resonance Report ---
MRI OF THE THORACIC SPINE WITH AND WITHOUT CONTRAST CLINICAL HISTORY: Upper back pain. Prostate and skin cancer. COMPARISON: None. TECHNIQUE: Utilizing a 1.5 Sharon magnet and dedicated coil, multiplanar, multiecho imaging of the th oracic spine was performed before and after the intravenous administration of 7.5 cc. FINDINGS: Exam is mildly compromised by motion artifact. There is mild loss of height of the superior endplate of T11 with minimal marrow edema. This represents a subacute to chronic fracture. No retrop ulsion. Old L1 compression fracture is noted. There is no suspicious marrow replacement within the th oracic spine. A hemangioma within T10 is noted. Thoracic cord signal and caliber are normal. There is no intracanalicular mass or fluid collection. Multilevel osteophytosis within the thoracic spine is noted with mild disc space narrowing. There are small left and trace right pleural effusions. There i s no acute thoracic spine fracture. No abnormal enhancement within the thoracic spine is noted. Post contrast sequences are compromised by failure fat saturation. There is no significant central canal o r neural foraminal stenosis within the thoracic spine. IMPRESSION: 1. No acute thoracic spine fracture. No acute process within the thoracic spine by MRI. Exam mildly c ompromised by motion artifact. 2. Subacute to chronic T11 compression fracture. Old L1 compression fracture. 3. No significant central canal and neural foraminal stenosis. 4. Normal thoracic cord signal and caliber. ACT 112: Negative or not required by law. Electronically signed by: Antelmo Santos M.D. 12/22/2022 7:11 PM
--- NOTE | 2022-12-22 19:49 | Magnetic Resonance Report ---
MRI OF THE LUMBAR SPINE WITH AND WITHOUT CONTRAST CLINICAL HISTORY: Lower extremity weakness, back pain. COMPARISON STUDY: MRI of the lumbar spine June 07, 2022. TECHNIQUE: Utilizing a 1.5 Sharon magnet and dedicated coil, multiplanar, multiecho imaging of the [facility] spine was performed before and after uneventful IV administration of 7.5 mL of Gadavist. FINDINGS: For purposes of numbering on this exam, the L5-S1 disc space is assigned to axial image 28 of 31. L1 and L3 compression fractures are similar in appearance to MRI of June 07, 2022. There is a mild compr ession fracture of the superior endplate of T11 with minimal marrow edema. This is subacute to chroni c. The conus terminates at the T12-L1 level. There is no intracanalicular mass or fluid collection. T here is no abnormal enhancement within the lumbar canal. L1-2: Central canal and neural foramen are patent. L2-3: There is facet arthrosis with ligamentous hypertrophy. There is mild narrowing of the central c anal. There is mild narrowing of both neural foramen. L3-4: Retropulsion at the inferior endplate is noted due to a fracture. There is facet arthrosis with ligamentous hypertrophy. Findings result in moderate to severe central canal stenosis which has mild ly progressed since previous MRI. Patent AP diameter canal is 6 mm. Severe right and moderate left ne ural foraminal stenosis is present. L4-5: There is facet arthrosis with ligamentous hypertrophy. There is mild narrowing of the central c anal and lateral recesses. Severe left and moderate right neural foraminal stenosis. L5-S1: Central canal is patent. There are facet arthrosis. There is moderate bilateral neural foramin al stenosis. IMPRESSION: 1. Moderate to severe central canal stenosis at L3-L4 due to retropulsion at the inferior endplate of L3, disc osteophyte complex, facet arthrosis and ligamentous hypertrophy. Otherwise, patent central canal. 2. Old L1 and L3 compression fractures, unchanged. Subacute to chronic mild T11 compression fracture. No acute fractures. 3. Multilevel neural foraminal stenosis, as above. ACT 112: Negative or not required by law. Electronically signed by: Antelmo Santos M.D. 12/22/2022 7:46 PM
[2022-12-23] MEDS: SODIUM CHLORIDE 0.9% 1000ML 1,000 ML IV SCH ×2 (05:52→18:29)
[2022-12-23] MEDS: ATORVASTATIN 40 MG TAB PO SCH (08:22)
[2022-12-23] MEDS: lisinopril 5 MG TAB PO SCH (08:22)
[2022-12-23] MEDS: POLYETHYLENE (MIRALAX) 17 GM PACK PO SCH (08:22)
[2022-12-23] MEDS: CHOLECALCIFEROL 1,000 UNITS 25 MCG TAB PO SCH (08:22)
[2022-12-23] MEDS: PANTOprazole 40 MG TAB PO SCH (08:22)
[2022-12-23] MEDS: ZINC SULFATE 220 MG CAPSULE PO SCH (08:22)
[2022-12-23] MEDS: MAGNESIUM OXIDE 400 MG TAB PO SCH (08:22)
[2022-12-23] MEDS: POTASSIUM CHLORIDE 10 MEQ TABCR PO SCH (08:23)
[2022-12-23] MEDS: PSYLLIUM or GUAR GUM FIBER POWDER PACKET PO SCH (08:23)
[2022-12-23] MEDS: ASPIRIN 81 MG CHEW PO SCH (08:23)
[2022-12-23] MEDS: CALCIUM CARBONATE 500 MG CHEWABLE TAB PO SCH ×2 (08:23→20:12)
[2022-12-23 09:28] LABS: Hemoglobin 15.6 g/dl (14.0-18.0); Mean Corpuscular Hemoglobin 30.1 pg (25.0-34.0); Mean Corpuscular Hgb Conc 34.7 g/dL (32.0-36.0); Mean Corpuscular Volume 86.9 fL (80.0-100.0); Mean Platelet Volume 10.4 fL (9.4-12.4); Platelet Count 134 K/uL (130-400); RDW Coefficient of Variation 12.9 % (11.5-14.5); RDW Standard Deviation 40.3 fL (36.4-46.3); Red Blood Count 5.18 M/uL (4.70-6.10); White Blood Count 11.52 K/ul (4.8-10.8)
[2022-12-23] MEDS ORDERED: METOCLOPRAMIDE HCL INJ 5 MG/ML 2 ML VIAL IV STA (09:29)
[2022-12-23] MEDS ORDERED: MECLIZINE HCL 25 MG TAB PO PRN (09:30)
[2022-12-23 09:38] LABS: BUN Creatinine Ratio 15.1 (10-20); Calcium 8.7 mg/dl (8.5-10.1); Creatinine Clr Calc Pharmacy 86.1 ml/min; Est GFR (Non-African American) 88.8 ml/min; Potassium 3.8 mmol/L (3.5-5.1)
--- NOTE | 2022-12-23 13:43 | Hospitalist Progress Note ---
Date of Service December 23, 2022 Assessment & Plan (1) Acute gastritis: Plan: Patient was admitted to the hospital on account of acute nausea and vomiting. Most likely acute viral gastritis. CT scan abdomen pelvis did not show any acute pathology. Chest x ray was normal, urinalysis did not suggest UTI Patient still nauseous and vomiting, after feeling better Continue supportive management IV normal saline 80 cc/h Diet as tolerated PRN Zofran for nausea Consult GI (2) Dizziness: Plan: Patient now complains of dizziness, especially on ambulation, likley BPPV There was no positive orthostatic blood pressure changes MRI brain did not show any pathology Will give Meclizine PRN (3) Compression fracture of L3 vertebra: Plan: Has suffered L3 and L1 compression fractures Probably from osteoporosis or from radiotherapy of his prostate cancer There is also a sub acute fracture of T11 Will obtain Lumbar and Thoracic MRI given hx of prostate cancer (4) Osteoporosis: Plan: History of osteoporosis, On Prolia at home, continue (5) Prostate cancer: Plan: Currently in remission Status post radiotherapy (6) Hypertension: Plan: Blood pressures under good control On lisinopril at home, continue (7) Weakness: Plan: Generalized weakness Most likely from dehydration PT OT Plan Monitor, patient may need rehab Admission and Anticipated Discharge Date Admission Date: December 21, 2022 Subjective patient seen and examined, still has nausea and vomiting Review of Systems Review of Systems: All systems reviewed are negative, apart from the ones contained in the history. Physical Exam Physical Exam: The patient is awake, lethargic HEENT--PERRL, EOMI, mucous membranes and oropharynx mildly dry Neck--supple. No JVD. No bruits. Thyroid normal, trachea midline, no adenopathy. Heart--normal S1 and S2. No murmurs, rubs or gallops. Lungs--clear bilaterally, no respiratory distress, no accessory muscle use. Abdomen--normal bowel sounds and soft. Mild epigastric and left sided abdominal pain Extremities--no cyanosis or clubbing. No edema. Dermatologic--normal skin turgor, normal color, no abnormal lymph nodes, no rash. Neurologic--cranial nerves II through XII grossly intact. Rheumatologic--normal range of motion. Psychiatric--normal affect. Results & Data Results & Data ([facility]) Vital Signs (Past 12 Hours) Vital Signs Temp Pulse Resp BP Pulse Ox O2 Del Method 02/11/23 07:22 97.5 F L 56 L 16 168/80 H 98 Room Air PG Care Time/CCT Total # of Minutes Spent Total Time Spent with Patient: Total time spent is greater than 50% in coordination of care (as documented) at patient's floor/unit and/or counseling patient: Coding Level of Care Code 67084 SUB INP/OBS CARE 2/35MIN Diagnoses Acute gastritis K29.00 Dizziness R42 Compression fracture of L3 vertebra S32.030A Osteoporosis M81.0 Prostate cancer C61 Hypertension I10 Weakness R53.1 Time Spent (min) 35
--- NOTE | 2022-12-23 18:46 | Gastrointestinal Consultation ---
Date of Consultation December 24, 2022 Assessment & Plan (1) Intractable nausea and vomiting: Resolved Agree with prn medications and acidd suppression Likely Gastroenteritis no signs of obstruction or other etiologies Eating solid food without difficulties Supportive care and recall GI as needed History of Present Illness Attending Physician: Delfina Mccall MD History of Present Illness This is a 77-year-old male with a history of prostate cancer, status post radiotherapy, hypertension, hyperlipidemia, bioprosthetic aortic valve, who presents to the hospital with c/o of nausea vomiting. Upon presntation he had a prodrome of not feeling well with chills, nausea, and vomiting. After work up that included normal electrolytes, las, and CT, he was admitted due to weakness. He continues to have intermitent n/v until last evening, last episode of emesis was yesterday morn. Still mildly fatigued but no signs of emesis or diarrhea Allergies Allergy/AdvReac Type Severity Reaction Status Date / Time No Known Allergies Allergy Verified 12/19/22 15:47 Home Medications Medication Instructions Recorded Confirmed Type cholecalciferol (vitamin D3) 50 2,000 units PO DAILY 06/16/19 12/19/22 History mcg (2,000 unit) tablet magnesium 250 mg tablet 250 mg PO DAILY 12/05/19 12/19/22 History ascorbic acid (vitamin C) 500 mg 1,000 mg PO DAILY 04/07/20 12/19/22 History tablet potassium gluconate 595 mg (99 mg) 595 mg PO DAILY 04/07/20 12/19/22 History tablet psyllium husk 3.4 gram/5.4 gram 2 tsp PO DAILY 04/07/20 12/19/22 History oral powder (Metamucil) BiPap Machine #1 ea 03/16/21 11/29/22 Rx aspirin 81 mg chewable tablet 81 mg PO DAILY 04/16/22 12/19/22 History glucosamine HCl 750 mg tablet 750 mg PO DAILY 04/16/22 12/19/22 History atorvastatin 40 mg tablet 40 mg PO DAILY 12/19/22 12/19/22 History calcium carbonate 500 mg calcium 500 mg PO BID 12/19/22 12/19/22 History (1,250 mg) tablet denosumab 60 mg/mL subcutaneous 60 mg subcut DIRECTED 12/19/22 12/19/22 History syringe (Prolia) lisinopril 5 mg tablet 5 mg PO DAILY 12/19/22 12/19/22 History omeprazole 20 mg capsule,delayed 20 mg PO DAILY 12/19/22 12/19/22 History release zinc gluconate 50 mg tablet 50 mg PO DAILY 12/19/22 12/19/22 History Patient History Medical History Achilles tendinitis of right lower extremity Adenomatous colon polyp Atherosclerotic heart disease of [place] coronary artery without angina pectoris Chronic reflux esophagitis Compression fracture of L1 lumbar vertebra Compression fracture of L3 vertebra Diverticulosis Dyslipidemia Esophageal reflux disease Hypertension Inhibited sexual excitement Lumbar radiculopathy Mitral valve disorder Obstructive sleep apnea Prostate cancer (12/10/19) Sacroiliitis Severe obstructive sleep apnea Surgical History History of aortic valve replacement (~2011) Bioprosthetic valve - 2011 History of excision of lesion Skin cancer removed from nose History of excision of pilonidal cyst History of surgery Uvula surgery for sleep apnea Hx of colonoscopy (~2018) Sigmoid divertics; Rectal angioectasis; 4 mm polyp Family History Father , 73yo Stroke syndrome Myocardial infarction Mother , 76yo Alzheimer disease Brother No problems noted. Brother , 1/2 brother Myocardial infarction Aortic valve problem as well Brother , 1/2 brother - unknown history Medical history unknown Sister No problems noted. Sister , 1/2 sister Medical history unknown Son No problems noted. Son No problems noted. Son No problems noted. Daughter No problems noted. Social History Smoking Status: Former smoker Cigarettes Per Day: 1-2 PPD x 20yrs;Quit 1975; Second Hand Exposure: No; Do You Dip or Chew Tobacco: No; Tobacco Cessation Education Requested by Patient: No Hx Alcohol Use: No Hx Substance Use: No Preferred Language: Faroese Communication Ability: Effective Visual Impairment: No Limitations Hearing Ability: Normal Family Resource Specialist Required: No Beliefs That Will Affect Care: None marital status: Current Living Situation: Spouse and Other current occupational status: retired current occupation: Worked at [employer] Other Information That Helps Us Care for You: No Feels Safe at Home: Yes Safety Concerns: Feels Safe At This Time caffeine: No during the past year weight has: remained stable Assistive Devices: None Review of Systems Review of Systems: 10 system negative except as above Physical Exam Constitutional: WD/WN, vitals as above Cardiovascular: RRR, no murmur, no edema Gastrointestinal (Abdomen): normal bowel sounds, soft, nontender, no hepatosplenomegaly Results & Data ([facility]) Vital Signs (Past 12 Hours) Vital Signs Temp Pulse Resp BP Pulse Ox O2 Del Method 12/23/22 14:30 36.7 C 59 L 16 154/69 H 96 Room Air 12/23/22 07:22 36.4 C L 56 L 16 168/80 H 98 Room Air
[2022-12-24] MEDS: SODIUM CHLORIDE 0.9% 1000ML 1,000 ML IV SCH (05:49)
[2022-12-24 06:28] LABS: Hematocrit (blood only) 42.8 % (42.0-52.0); Hemoglobin 14.9 g/dl (14.0-18.0); Mean Corpuscular Hgb Conc 34.8 g/dL (32.0-36.0); Mean Corpuscular Volume 86.1 fL (80.0-100.0); Mean Platelet Volume 10.2 fL (9.4-12.4); Platelet Count 125 K/uL (130-400); RDW Coefficient of Variation 12.9 % (11.5-14.5); RDW Standard Deviation 39.8 fL (36.4-46.3); Red Blood Count 4.97 M/uL (4.70-6.10); White Blood Count 10.77 K/ul (4.8-10.8)
[2022-12-24 06:41] LABS: BUN Creatinine Ratio 16.9 (10-20); Calcium 8.3 mg/dl (8.5-10.1); Creatinine Clr Calc Pharmacy 88.5 ml/min; Est GFR (African American) 104.2 ml/min; Est GFR (Non-African American) 89.9 ml/min
[2022-12-24] MEDS: lisinopril 5 MG TAB PO SCH (08:16)
[2022-12-24] MEDS: MAGNESIUM OXIDE 400 MG TAB PO SCH (08:16)
[2022-12-24] MEDS: ZINC SULFATE 220 MG CAPSULE PO SCH (08:16)
[2022-12-24] MEDS: PANTOprazole 40 MG TAB PO SCH (08:16)
[2022-12-24] MEDS: ATORVASTATIN 40 MG TAB PO SCH (08:16)
[2022-12-24] MEDS: CHOLECALCIFEROL 1,000 UNITS 25 MCG TAB PO SCH (08:16)
[2022-12-24] MEDS: POTASSIUM CHLORIDE 10 MEQ TABCR PO SCH (08:17)
[2022-12-24] MEDS: POLYETHYLENE (MIRALAX) 17 GM PACK PO SCH (08:17)
[2022-12-24] MEDS: CALCIUM CARBONATE 500 MG CHEWABLE TAB PO SCH ×2 (08:17→20:24)
[2022-12-24] MEDS: PSYLLIUM or GUAR GUM FIBER POWDER PACKET PO SCH (08:17)
[2022-12-24] MEDS: ASPIRIN 81 MG CHEW PO SCH (08:17)
[2022-12-24] MEDS: MECLIZINE HCL 25 MG TAB PO SCH ×2 (11:57→20:20)
--- NOTE | 2022-12-24 12:59 | Hospitalist Progress Note ---
Date of Service December 24, 2022 Assessment & Plan (1) Acute gastritis: Plan: Patient was admitted to the hospital on account of acute nausea and vomiting. Most likely acute viral gastritis. CT scan abdomen pelvis did not show any acute pathology. Chest x ray was normal, urinalysis did not suggest UTI Patient did not vomit today Continue supportive management IV normal saline 80 cc/h Diet as tolerated PRN Zofran for nausea Appreciate GI (2) Dizziness: Plan: Better after meclizine There was no positive orthostatic blood pressure changes MRI brain did not show any pathology Will continue Meclizine PRN (3) Compression fracture of L3 vertebra: Plan: Has suffered L3 and L1 compression fractures Probably from osteoporosis or from radiotherapy of his prostate cancer There is also a sub acute fracture of T11 Will obtain Lumbar and Thoracic MRI given hx of prostate cancer (4) Osteoporosis: Plan: History of osteoporosis, On Prolia at home, continue (5) Prostate cancer: Plan: Currently in remission Status post radiotherapy (6) Hypertension: Plan: Blood pressures under good control On lisinopril at home, continue (7) Weakness: Plan: Generalized weakness Most likely from dehydration PT OT Plan Monitor, patient may need rehab Admission and Anticipated Discharge Date Admission Date: December 21, 2022 Subjective patient seen and examined, nausea and vomiting resolved Review of Systems Review of Systems: All systems reviewed are negative, apart from the ones contained in the history. Physical Exam Physical Exam: The patient is awake, lethargic HEENT--PERRL, EOMI, mucous membranes and oropharynx mildly dry Neck--supple. No JVD. No bruits. Thyroid normal, trachea midline, no adenopathy. Heart--normal S1 and S2. No murmurs, rubs or gallops. Lungs--clear bilaterally, no respiratory distress, no accessory muscle use. Abdomen--normal bowel sounds and soft. Mild epigastric and left sided abdominal pain Extremities--no cyanosis or clubbing. No edema. Dermatologic--normal skin turgor, normal color, no abnormal lymph nodes, no rash. Neurologic--cranial nerves II through XII grossly intact. Rheumatologic--normal range of motion. Psychiatric--normal affect. Results & Data Results & Data ([facility]) Vital Signs (Past 12 Hours) Vital Signs Temp Pulse Resp BP Pulse Ox O2 Del Method 12/24/22 07:27 97.5 F L 72 16 177/69 H 96 Room Air PG Care Time/CCT Total # of Minutes Spent Total Time Spent with Patient: Total time spent is greater than 50% in coordination of care (as documented) at patient's floor/unit and/or counseling patient: Coding Level of Care Code 37015 SUB INP/OBS CARE 2/35MIN Diagnoses Acute gastritis K29.00 Dizziness R42 Compression fracture of L3 vertebra S32.030A Osteoporosis M81.0 Prostate cancer C61 Hypertension I10 Weakness R53.1 Time Spent (min) 35
[2022-12-25] MEDS: MECLIZINE HCL 25 MG TAB PO SCH ×2 (03:57→13:03)
[2022-12-25] MEDS: ZINC SULFATE 220 MG CAPSULE PO SCH (08:24)
[2022-12-25] MEDS: ATORVASTATIN 40 MG TAB PO SCH (08:24)
[2022-12-25] MEDS: MAGNESIUM OXIDE 400 MG TAB PO SCH (08:24)
[2022-12-25] MEDS: POLYETHYLENE (MIRALAX) 17 GM PACK PO SCH (08:25)
[2022-12-25] MEDS: PANTOprazole 40 MG TAB PO SCH (08:25)
[2022-12-25] MEDS: CHOLECALCIFEROL 1,000 UNITS 25 MCG TAB PO SCH (08:25)
[2022-12-25] MEDS: PSYLLIUM or GUAR GUM FIBER POWDER PACKET PO SCH (08:25)
[2022-12-25] MEDS: ASPIRIN 81 MG CHEW PO SCH (08:31)
[2022-12-25] MEDS: CALCIUM CARBONATE 500 MG CHEWABLE TAB PO SCH (08:31)
[2022-12-25] MEDS: POTASSIUM CHLORIDE 10 MEQ TABCR PO SCH (08:31)
[2022-12-25 08:52] LABS: Hematocrit (blood only) 44.1 % (42.0-52.0); Hemoglobin 15.7 g/dl (14.0-18.0); Mean Corpuscular Hemoglobin 30.5 pg (25.0-34.0); Mean Corpuscular Hgb Conc 35.6 g/dL (32.0-36.0); Mean Corpuscular Volume 85.6 fL (80.0-100.0); Mean Platelet Volume 10.4 fL (9.4-12.4); Platelet Count 141 K/uL (130-400); RDW Coefficient of Variation 13.1 % (11.5-14.5); RDW Standard Deviation 40.3 fL (36.4-46.3); Red Blood Count 5.15 M/uL (4.70-6.10); White Blood Count 12.15 K/ul (4.8-10.8)
[2022-12-25] MEDS ORDERED: lisinopril 10 MG TAB PO SCH (09:00)
[2022-12-25 09:11] LABS: BUN Creatinine Ratio 22.4 (10-20); Creatinine Clr Calc Pharmacy 82.7 ml/min; Est GFR (African American) 101.3 ml/min; Est GFR (Non-African American) 87.4 ml/min; Potassium 3.9 mmol/L (3.5-5.1)
--- NOTE | 2022-12-25 13:48 | Discharge Summary ---
Date of Service December 25, 2022 Admission HPI Per Admitting Provider This is a 77-year-old male with a history of prostate cancer, status post radiotherapy, hypertension, hyperlipidemia, bioprosthetic aortic valve, who presents to the hospital today on account of acute onset of nausea vomiting. Most of the history was obtained from the patient's who was at the bedside and also ED physician. 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 Before the arrival of the squad, he had had an episode of vomiting and was feeling chills. Upon arrival at the emergency department basic labs were within normal limits, CBC BMP, chest x-ray did not show any acute pathology, EKG was normal, urinalysis did not show any evidence of UTI. CT abdomen pelvis did not show any acute pathology. However upon ambulation patient felt so weak and could not ambulate which was noted his baseline according to reports. Decision was made to admit him to the hospital for further management. Principal Diagnosis acute gastritis, deconditioning Discharge Exam The patient is awake, lethargic HEENT--PERRL, EOMI, mucous membranes and oropharynx mildly dry Neck--supple. No JVD. No bruits. Thyroid normal, trachea midline, no adenopathy. Heart--normal S1 and S2. No murmurs, rubs or gallops. Lungs--clear bilaterally, no respiratory distress, no accessory muscle use. Abdomen--normal bowel sounds and soft. Mild epigastric and left sided abdominal pain Extremities--no cyanosis or clubbing. No edema. Dermatologic--normal skin turgor, normal color, no abnormal lymph nodes, no rash. Neurologic--cranial nerves II through XII grossly intact. Rheumatologic--normal range of motion. Psychiatric--normal affect. Discharge Data Allergies Allergy/AdvReac Type Severity Reaction Status Date / Time No Known Allergies Allergy Verified 12/19/22 15:47 Consultations 12/19/22 15:24 ED Decision to Admit Stat 12/23/22 09:43 Consult Gastroenterology Routine Ordered Studies 12/19/22 12:10 CT abd pelvis IV con only Stat 12/21/22 15:26 MRI Brain [MR brain wo/w con] Routine 12/22/22 10:30 MRI Lumbar Spine [MR lumbar spine wo/w con] Routine MRI Thoracic [MR thoracic spine wo/w con] Routine Hospital Course (1) Acute gastritis: Patient was admitted to the hospital on account of acute nausea and vomiting. Most likely acute viral gastritis. CT scan abdomen pelvis did not show any acute pathology. Chest x ray was normal, urinalysis did not suggest UTI Patient did not vomit today Continue supportive management Diet as tolerated PRN Zofran for nausea Appreciate GI (2) Dizziness: Better after meclizine There was no positive orthostatic blood pressure changes MRI brain did not show any pathology Will continue Meclizine PRN (3) Compression fracture of L3 vertebra: Has suffered L3 and L1 compression fractures Probably from osteoporosis or from radiotherapy of his prostate cancer There is also a sub acute fracture of T11 Will obtain Lumbar and Thoracic MRI given hx of prostate cancer (4) Osteoporosis: History of osteoporosis, On Prolia at home, continue (5) Prostate cancer: Currently in remission Status post radiotherapy (6) Hypertension: Blood pressures under good control On lisinopril at home, continue (7) Weakness: Generalized weakness Most likely from dehydration PT OT Plan d/c home with PT Total Time Total Time Spent Total Time Spent (In Minutes): 35 Discharge Plan Discharge Items Patient Disposition: Home - Home Health Services Reason For Visit: WEAKNESS Discharge Diagnosis: Acute gastritis Activity: Resume your previous activity Non-emergency contact: Primary Care Provider Call non-emergency contact if: you have any medication questions Follow-up/Referrals: Reginald Munoz MD [Primary Care Provider] - 01/02/23 1:00 pm (APPOINTMENT WITH LIANA MCKEON) Diet: Regular Addtl Attending Provider Instructions: please make appointment to follow up with your PCP Pending Studies at Discharge: No Stand-Alone Forms: My [employer], Smoking Cessation Medications and DC Order Prescriptions: New meclizine 25 mg Tablet 25 mg PO Q8H PRN (Reason: Dizziness) 30 Days Qty: 90 0RF Continued potassium gluconate 595 mg (99 mg) tablet 595 mg PO DAILY Metamucil 3.4 gram/5.4 gram powder 2 tsp PO DAILY (DME) BiPap Machine Misc See Rx Instructions .MEDSUPPLY Qty: 1 0RF Rx Instructions: BIPAP 16/12 Biflex setting #2 with heated humidification, tubing, and supplies. SAMEER: 99+ years. cholecalciferol (vitamin D3) 2,000 unit tablet 2,000 units PO DAILY ascorbic acid (vitamin C) 500 mg tablet 1,000 mg PO DAILY magnesium 250 mg tablet 250 mg PO DAILY aspirin 81 mg Tablet,Chewable 81 mg PO DAILY glucosamine HCl 750 mg Tablet 750 mg PO DAILY calcium carbonate 500 mg calcium (1,250 mg) Tablet 500 mg PO BID zinc gluconate 50 mg Tablet 50 mg PO DAILY atorvastatin 40 mg tablet 40 mg PO DAILY Rx Instructions: Take 1 tablet by mouth once daily omeprazole 20 mg capsule,delayed release(DR/EC) 20 mg PO DAILY Rx Instructions: Take 1 capsule by mouth once daily lisinopril 5 mg tablet 5 mg PO DAILY Rx Instructions: TAKE 1 TABLET BY MOUTH EVERY DAY DIRECTED Prolia 60 mg/mL syringe 60 mg subcut DIRECTED Discharge Orders: Discharge Order (Routine); Ordered 12/25/22 Ordered By: Delfina Mccall Admission Data Admit Date/Time: 12/21/22 11:24 Attending Provider: Delfina Mccall Admit Provider: Delfina Mccall Primary Care Provider: Reginald Munoz Other Providers: Delfina Mccall ; Filemon Flaherty Coding Level of Care Code HOSP INP/OBS DISCH >30 MIN Diagnoses Acute gastritis K29.00 Dizziness R42 Compression fracture of L3 vertebra S32.030A Osteoporosis M81.0 Prostate cancer C61 Hypertension I10 Weakness R53.1 Time Spent (min) 35
== END 2022-12-25 14:44 | disposition home health service (06) | DRG 392 ==
LOC: ED 11:41 → EDINP 11:41 → 3W 17:38

== ENCOUNTER 2025-07-08 13:35 | Inpatient (IN) ==
--- NOTE | 2025-07-08 14:24 | Emergency Department Note ---
Impression & Plan AMS (altered mental status) ED Provider Note HISTORY OF PRESENT ILLNESS: Patient is an 79-year-old male presenting with altered mental status. Family provides history. Reports that for the last 3 weeks the patient has been having waxing and waning changes in his mental status. 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 Reports that he has had a significant decline in the last 3 weeks and today was the worst. They report that today they had trouble getting him up out of bed. They state that he has been very aggressive and not acting like his normal self. Denies any recent changes in medications. No recent fevers. No recent falls or head injuries. No reported abdominal pain. Patient is a poor historian and does not supply any meaningful history. ROS: as above PHYSICAL EXAM: Constitutional: Patient appears in no acute distress. HENT: Head: Normocephalic and atraumatic. Eyes: EOMI, PERRL Mouth/Throat: Mucous membranes moist. Neck: Trachea midline. Neck supple. Cardiovascular: RRR, No murmurs, rubs or gallops. Intact distal pulses. Pulmonary/Chest: No respiratory distress. Breath sounds clear and equal bilaterally. No wheezes or rales. Abdominal: Abdomen soft, no tenderness, rebound or guarding. Musculoskeletal: No edema, tenderness or deformity noted. Skin: Warm and dry. No rash, erythema, pallor or cyanosis Psychiatric: Appropriate mood and affect for situation. Neurological: Alert. CN II-XII grossly intact, moving all extremities equally and fully. MDM: - Vitals signs showed hypertension - History obtained via patient's family, given patient's confusion. History as above. - Chronic conditions affecting care: HLD; CAD; prostate cancer - Differential diagnoses include, but are not limited to: UTI; pneumonia; viral syndrome; CVA; intracranial hemorrhage; ACS; electrolyte abnormality - Order placed for continuous cardiac monitoring. At this time, monitor showed rate of 77 bpm with normal sinus rhythm, per my interpretation. - External medical records reviewed. Primary care visit note dated 06/22/2025 was reviewed. Patient was seen for an ER follow-up visit after presenting to the ER for change in mental status. A neurology referral was placed due to concern for potential neurological cognitive impairment. Neurology visit note dated 06/25/2025 was reviewed. 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 He was started on donepezil at that visit. - EKG image interpreted by myself showed normal sinus rhythm. Rate 64 bpm. QT 406. No acute ischemic changes. - Laboratory workup interpreted by myself showed normal WBC; normal PT/INR; stable electrolytes; elevated total bilirubin (1.4); normal troponin; normal TSH; normal lactate - CXR image reviewed by myself is negative for pneumonia, per my interpretation. - CT head wo contrast negative for acute intracranial pathology. - Viral respiratory panel negative - UA ordered - Lyme, anaplasmosis and babesia testing ordered. - On discussion with family, they report that after starting the donepezil, the patient became very lethargic and was sleeping all the time and at the recommendation of the neurologist they had stopped the medication about 3 days ago. - Discussed results with patient's family at bedside. Unclear etiology for his altered mental status at this time. Did discuss admitting to hospitalist service for further evaluation and management, to which they were agreeable. The do state that if it is recommended that the patient be placed, they would be agreeable to him being placed in a facility or potential prison if it was warranted. - Discussion was had with case specialist about patient's case and need for admission - Hospitalist consulted for admission - Patient admitted to [facility] hospitalist service for further evaluation and management. ASSESSMENT AND PLAN: Diagnosis: Altered mental status Plan: Admit Past Med/Surg History Problem List AMS (altered mental status) (Acute) Dementia Change in bowel habits Esophageal reflux disease Constipation (Acute) Osteoporosis Ectatic abdominal aorta Compression fracture of L3 vertebra Lumbar radiculopathy Sacroiliitis Compression fracture of L1 lumbar vertebra Severe obstructive sleep apnea cpap Prostate cancer (Chronic 12/10/19) radiation Nocturnal hypoxemia Cervical arthritis Atherosclerotic heart disease of [place] coronary artery without angina pectoris per pt noted during AV replacement, no current issues Chronic reflux esophagitis Dyslipidemia Hypertension History of aortic valve replacement with bioprosthetic valve Medical History Age related osteoporosis Mitral valve disorder Inhibited sexual excitement Diverticulosis Adenomatous colon polyp Surgical History History of surgery Hx of colonoscopy (~2018) History of aortic valve replacement (~2011) History of excision of lesion History of excision of pilonidal cyst Family History Father Stroke syndrome Myocardial infarction Mother Alzheimer disease Brother No problems noted. Brother Myocardial infarction Brother Medical history unknown Sister No problems noted. Sister Medical history unknown Son No problems noted. Son No problems noted. Son No problems noted. Daughter No problems noted. Denies family history of Ovarian cancer Prostate cancer Breast cancer Colorectal cancer Social History Smoking Status: Former smoker Tobacco Type: Cigarettes Age Started Using Tobacco: 13; Age Quit Using Tobacco: 34; packs per day: 1; Second Hand Exposure: No; Do You Dip or Chew Tobacco: No; Hx Alcohol Use: No Hx Substance Use: No Preferred Language: Luxembourgish Communication Ability: Effective Visual Impairment: No Limitations Hearing Ability: Normal Risk Control Manager Required: No Beliefs That Will Affect Care: None marital status: Current Living Situation: Spouse current occupational status: retired current occupation: Worked at [employer] Feels Safe at Home: Yes Childhood Exposure to Second-Hand Smoke: Yes Diet: other and regular caffeine: No during the past year weight has: remained stable Dental Care, Regularly: Yes Physical Activity Frequency: 1-2 Times per Week Physical Activity Frequency Comment: walkl as able Seatbelt Use: always Sunscreen Use: No Do you think of yourself as: straight/heterosexual Assistive Devices: CPAP and Glasses Allergies Allergies Allergy/AdvReac Type Severity Reaction Status Date / Time No Known Allergies Allergy Verified 07/08/25 16:33 Home Meds Home Medications Medication Instructions Recorded Confirmed ascorbic acid (vitamin C) 500 mg 1,000 mg PO BID 04/07/20 07/08/25 tablet potassium gluconate 595 mg (99 mg) 595 mg PO QDL 04/07/20 07/08/25 tablet zinc gluconate 50 mg tablet 50 mg PO QDL 12/19/22 07/08/25 lisinopril 5 mg tablet 5 mg PO QAM 06/18/25 07/08/25 zoledronic acid 5 mg/100 mL in 1 ea IV YEARLY 06/18/25 07/08/25 mannitol 5 %-water intravenous piggybck (Reclast) magnesium glycinate 100 mg (as 100 mg PO DAILY 06/25/25 07/08/25 glycinate) tablet vit D3 50 mcg-vitamin K1 500 1 cap PO DAILY 06/25/25 07/08/25 mcg-MK4 1,500 mcg-MK7 180 mcg capsule cholecalciferol (vitamin D3) 125 125 mcg PO BID 07/08/25 07/08/25 mcg (5,000 unit) tablet (Vitamin D3) Previous Rx's Medication Instructions Recorded BiPap Machine #1 ea 03/16/21 Hospital Bed [facility] ([facility] ea 07/07/25 Bed) Results & Data (ED) Vital Signs Vital Signs - 24 hr 07/08/25 13:21 07/08/25 13:21 07/08/25 13:21 Temperature 36.8 C 36.8 C Temperature Source Oral Oral Pulse Rate 63 Pulse Rate [Left Brachial] 63 Pulse Rate from SpO2 Sensor Pulse Rhythm Regular Pulse Rhythm [Left Brachial] Regular Pulse Strength Normal Pulse Strength [Left Brachial] Normal Respiratory Rate 18 16 Respiratory Effort / Characteristics Non-Labored Non-Labored Respiratory Depth Normal Normal Respiratory Pattern Regular Regular Blood Pressure 152/70 H Blood Pressure [Left Radial Artery] 152/70 H Blood Pressure Mean 97 Blood Pressure Mean [Left Radial Artery] 97 Blood Pressure Position Lying Blood Pressure Position [Left Radial Artery] Lying Pulse Oximetry 96 96 Oxygen Delivery Method Room Air Room Air Room Air Sepsis Recent Fever Within 48 Hours No Sepsis New/Unexplained Change in Mental Status N/A Sepsis Action Taken by Nursing No Action Required 07/08/25 14:02 07/08/25 14:30 07/08/25 15:31 Temperature Temperature Source Pulse Rate 67 74 78 Pulse Rate [Left Brachial] Pulse Rate from SpO2 Sensor 78 Pulse Rhythm Pulse Rhythm [Left Brachial] Pulse Strength Pulse Strength [Left Brachial] Respiratory Rate 20 Respiratory Effort / Characteristics Respiratory Depth Respiratory Pattern Blood Pressure 151/82 H 145/72 H Blood Pressure [Left Radial Artery] Blood Pressure Mean 118 85 Blood Pressure Mean [Left Radial Artery] Blood Pressure Position Blood Pressure Position [Left Radial Artery] Pulse Oximetry 98 96 Oxygen Delivery Method Sepsis Recent Fever Within 48 Hours Sepsis New/Unexplained Change in Mental Status Sepsis Action Taken by Nursing 07/08/25 16:00 Temperature Temperature Source Pulse Rate 77 Pulse Rate [Left Brachial] Pulse Rate from SpO2 Sensor 77 Pulse Rhythm Pulse Rhythm [Left Brachial] Pulse Strength Pulse Strength [Left Brachial] Respiratory Rate Respiratory Effort / Characteristics Respiratory Depth Respiratory Pattern Blood Pressure 168/96 H Blood Pressure [Left Radial Artery] Blood Pressure Mean 120 Blood Pressure Mean [Left Radial Artery] Blood Pressure Position Blood Pressure Position [Left Radial Artery] Pulse Oximetry 95 Oxygen Delivery Method Sepsis Recent Fever Within 48 Hours Sepsis New/Unexplained Change in Mental Status Sepsis Action Taken by Nursing Laboratory Data 07/08/25 Unknown 07/08/25 Unknown Lab Results 07/08/25 07/08/25 07/08/25 Range/Units 15:13 15:19 16:06 WBC (4.8-10.8) K/ul RBC (4.70-6.10) M/uL Hgb (14.0-18.0) g/dl Hct (42.0-52.0) % MCV (80.0-100.0) fL MCH (25.0-34.0) pg MCHC (32.0-36.0) g/dL RDW Std Deviation (36.4-46.3) fL RDW Coeff of Lucina (11.5-14.5) % Plt Count (130-400) K/uL MPV (9.4-12.4) fL Immature Gran % (Auto) % Neut % (Auto) % Lymph % (Auto) % Lea % (Auto) % Eos % (Auto) % Baso % (Auto) % Neut # (Auto) (1.40-6.50) K/uL Lymph # (Auto) (1.20-3.40) K/uL Lea # (Auto) (0.11-0.59) K/uL Eos # (Auto) (0.00-0.50) K/uL Baso # (Auto) (0.00-0.20) K/uL Immature Gran # (Auto) (0.01-0.20) K/uL PT (9.0-12.0) Seconds INR (0.9-1.1) Sodium (136-145) mmol/L Potassium (3.5-5.1) mmol/L Chloride (98-107) mmol/L Carbon Dioxide (21-32) mmol/L Anion Gap (3-11) BUN (6-23) mg/dl Creatinine (0.6-1.4) mg/dl Est Cr Clr Drug Dosing ml/min eGFR BUN/Creatinine Ratio (10-20) Glucose (70-99(Fasting)) mg/dl POC Glucose 123 H (70-99) mg/dl Lactate 1.0 (0.4-2.0) mmol/L Calcium (8.6-10.3) mg/dl Magnesium (1.7-2.4) mg/dl Total Bilirubin (0.2-1.0) mg/dl AST (13-39) U/L ALT (7-52) U/L Alkaline Phosphatase (34-104) U/L Total Creatine Kinase (30-223) U/L Troponin I High Sens (0-20) pg/ml Total Protein (6.0-8.3) gm/dl Albumin (3.4-5.0) gm/dl Globulin (2.5-4.0) gm/dl Albumin/Globulin Ratio (0.9-2) TSH (0.300-4.500) uIu/ml Adenovirus (PCR) Not Detected (NotDetected) Anaplasma Smear Babesia Smear B. pertussis DNA (PCR) Not Detected (NotDetected) B.parapertussis DNA PCR Not Detected (NotDetected) C. pneumoniae DNA (PCR) Not Detected (NotDetected) Coronavirus OC43 (PCR) Not Detected (NotDetected) Coronavirus HKU1 (PCR) Not Detected (NotDetected) Coronavirus 229E (PCR) Not Detected (NotDetected) SARS-CoV-2 (PCR) Not Detected (NotDetected) Coronavirus NL63 (PCR) Not Detected (NotDetected) Human Metapneumovir PCR Not Detected (NotDetected) Influenza Type A (PCR) Not Detected (NotDetected) Influenza Type B (PCR) Not Detected (NotDetected) M. pneumoniae (PCR) Not Detected (NotDetected) Parainfluenza 1 (PCR) Not Detected (NotDetected) Parainfluenza 2 (PCR) Not Detected (NotDetected) Parainfluenza 3 (PCR) Not Detected (NotDetected) Parainfluenza 4 (PCR) Not Detected (NotDetected) RSV (PCR) Not Detected (NotDetected) Entero/Rhino (PCR) Not Detected (NotDetected) 07/08/25 Range/Units Unknown WBC 10.55 (4.8-10.8) K/ul RBC 5.35 (4.70-6.10) M/uL Hgb 16.0 (14.0-18.0) g/dl Hct 46.3 (42.0-52.0) % MCV 86.5 (80.0-100.0) fL MCH 29.9 (25.0-34.0) pg MCHC 34.6 (32.0-36.0) g/dL RDW Std Deviation 43.0 (36.4-46.3) fL RDW Coeff of Lucina 13.8 (11.5-14.5) % Plt Count 153 (130-400) K/uL MPV 9.9 (9.4-12.4) fL Immature Gran % (Auto) 0.7 % Neut % (Auto) 78.2 % Lymph % (Auto) 11.9 % Lea % (Auto) 6.3 % Eos % (Auto) 2.1 % Baso % (Auto) 0.8 % Neut # (Auto) 8.26 H (1.40-6.50) K/uL Lymph # (Auto) 1.26 (1.20-3.40) K/uL Lea # (Auto) 0.66 H (0.11-0.59) K/uL Eos # (Auto) 0.22 (0.00-0.50) K/uL Baso # (Auto) 0.08 (0.00-0.20) K/uL Immature Gran # (Auto) 0.07 (0.01-0.20) K/uL PT 11.5 (9.0-12.0) Seconds INR 1.1 (0.9-1.1) Sodium 139 (136-145) mmol/L Potassium 3.9 (3.5-5.1) mmol/L Chloride 104 (98-107) mmol/L Carbon Dioxide 27 (21-32) mmol/L Anion Gap 8 (3-11) BUN 12 (6-23) mg/dl Creatinine 0.76 (0.6-1.4) mg/dl Est Cr Clr Drug Dosing 79.3 ml/min eGFR 90.86 BUN/Creatinine Ratio 15.8 (10-20) Glucose 124 H (70-99(Fasting)) mg/dl POC Glucose (70-99) mg/dl Lactate (0.4-2.0) mmol/L Calcium 9.3 (8.6-10.3) mg/dl Magnesium 2.2 (1.7-2.4) mg/dl Total Bilirubin 1.4 H (0.2-1.0) mg/dl AST 17 (13-39) U/L ALT 20 (7-52) U/L Alkaline Phosphatase 86 (34-104) U/L Total Creatine Kinase 28 L (30-223) U/L Troponin I High Sens 9.7 (0-20) pg/ml Total Protein 7.0 (6.0-8.3) gm/dl Albumin 4.1 (3.4-5.0) gm/dl Globulin 2.9 (2.5-4.0) gm/dl Albumin/Globulin Ratio 1.4 (0.9-2) TSH 1.100 (0.300-4.500) uIu/ml Adenovirus (PCR) (NotDetected) Anaplasma Smear See Comment Babesia Smear See Comment B. pertussis DNA (PCR) (NotDetected) B.parapertussis DNA PCR (NotDetected) C. pneumoniae DNA (PCR) (NotDetected) Coronavirus OC43 (PCR) (NotDetected) Coronavirus HKU1 (PCR) (NotDetected) Coronavirus 229E (PCR) (NotDetected) SARS-CoV-2 (PCR) (NotDetected) Coronavirus NL63 (PCR) (NotDetected) Human Metapneumovir PCR (NotDetected) Influenza Type A (PCR) (NotDetected) Influenza Type B (PCR) (NotDetected) M. pneumoniae (PCR) (NotDetected) Parainfluenza 1 (PCR) (NotDetected) Parainfluenza 2 (PCR) (NotDetected) Parainfluenza 3 (PCR) (NotDetected) Parainfluenza 4 (PCR) (NotDetected) RSV (PCR) (NotDetected) Entero/Rhino (PCR) (NotDetected) Imaging Data Radiologist's Impression: Chest X-Ray 07/08/25 14:06 XR chest 1V portable CLINICAL HISTORY: Confusion. COMPARISON STUDY: Chest radiograph December 19, 2022. FINDINGS: Median sternotomy wires and a prosthetic cardiac valve are again noted. The heart is mildly enlarged. There is no pneumothorax or pleural effusion. There is no consolidation or evidence for pulmonary edema. A radiodensity projecting over the cervical spine is likely on the patient. IMPRESSION: No acute cardiopulmonary findings. ACT 112: Negative or not required by law. Electronically signed by: Antelmo Santos M.D. 07/08/2025 2:[address] 07/08/25 14:06 CT SCAN OF THE BRAIN WITHOUT IV CONTRAST CLINICAL HISTORY: Confusion. COMPARISON STUDY: Head CT, CTA of the head and MRI of the brain June 18, 2025. TECHNIQUE: Unenhanced axial CT scan of the brain was performed from the vertex to the skull base. A dose lowering technique was utilized adhering to the principles of ALARA. CT DOSE: 1687.29 mGy.cm FINDINGS: This exam is mildly compromised by motion artifact. No acute intracranial hemorrhage, midline shift or mass effect is present. Ventricular system is unremarkable. Basal cisterns are patent. There are no extra-axial collections. There are no findings to suggest acute dural sinus thrombosis or acute territorial infarct. No calvarial fractures are identified. IMPRESSION: 1. No acute intracranial findings. Mild motion artifact. 2. No significant change in appearance of the brain. ACT 112: Negative or not required by law. Electronically signed by: Antelmo Santos M.D. 07/08/2025 3:07 PM Discharge Plan Visit Data Chief Complaint: Altered Mental Status Stated Complaint: CONFUSION ED Provider: Bronwyn Trent Discharge Problem: AMS (altered mental status) Condition: Fair Forms Stand Alone Forms: [facility] Prescriptions Prescriptions: No Action potassium gluconate 595 mg (99 mg) tablet 595 mg PO QDL (DME) Hospital Bed Misc See Rx Instructions .Route Qty: 1 0RF Rx Instructions: As directed (DME) BiPap Machine Misc See Rx Instructions .MEDSUPPLY Qty: 1 0RF Rx Instructions: BIPAP 16/12 Biflex setting #2 with heated humidification, tubing, and supplies. SAMEER: 99+ years. ascorbic acid (vitamin C) 500 mg tablet 1,000 mg PO BID magnesium glycinate 100 mg tablet 100 mg PO DAILY vitamin D3-vit K1-vit MK4-MK7 50-500-1,500 mcg capsule 1 cap PO DAILY zinc gluconate 50 mg Tablet 50 mg PO QDL cholecalciferol (vitamin D3) [Vitamin D3] 125 mcg (5,000 unit) Tablet 125 mcg PO BID zoledronic [id number]-[id number] [Reclast] 5 mg/100 mL Piggyback 1 ea IV YEARLY lisinopril 5 mg tablet 5 mg PO QAM Referrals Referrals: Sharon Marquez MD [Primary Care Provider] -
--- NOTE | 2025-07-08 14:59 | XRay Report ---
XR chest 1V portable CLINICAL HISTORY: Confusion. COMPARISON STUDY: Chest radiograph December 19, 2022. FINDINGS: Median sternotomy wires and a prosthetic cardiac valve are again noted. The heart is mildly enlarged. There is no pneumothorax or pleural effusion. There is no consolidation or evidence for pu lmonary edema. A radiodensity projecting over the cervical spine is likely on the patient. IMPRESSION: No acute cardiopulmonary findings. ACT 112: Negative or not required by law. Electronically signed by: Antelmo Santos M.D. 07/08/2025 2:58 PM
--- NOTE | 2025-07-08 15:10 | CT Scan Report ---
CT SCAN OF THE BRAIN WITHOUT IV CONTRAST CLINICAL HISTORY: Confusion. COMPARISON STUDY: Head CT, CTA of the head and MRI of the brain June 18, 2025. TECHNIQUE: Unenhanced axial CT scan of the brain was performed from the vertex to the skull base. A dose lowering technique was utilized adhering to the principles of ALARA. CT DOSE: 1687.29 mGy.cm FINDINGS: This exam is mildly compromised by motion artifact. No acute intracranial hemorrhage, midli ne shift or mass effect is present. Ventricular system is unremarkable. Basal cisterns are patent. Th ere are no extra-axial collections. There are no findings to suggest acute dural sinus thrombosis or acute territorial infarct. No calvarial fractures are identified. IMPRESSION: 1. No acute intracranial findings. Mild motion artifact. 2. No significant change in appearance of the brain. ACT 112: Negative or not required by law. Electronically signed by: Antelmo Santos M.D. 07/08/2025 3:07 PM
[2025-07-08 15:17] LABS: Hematocrit (blood only) 46.3 % (42.0-52.0); Hemoglobin 16.0 g/dl (14.0-18.0); Immature Granulocytes # (auto) 0.07 K/uL (0.01-0.20); Immature Granulocytes % (auto) 0.7 %; Mean Corpuscular Hemoglobin 29.9 pg (25.0-34.0); Mean Corpuscular Volume 86.5 fL (80.0-100.0); Platelet Count 153 K/uL (130-400); RDW Standard Deviation 43.0 fL (36.4-46.3); Red Blood Count 5.35 M/uL (4.70-6.10); White Blood Count 10.55 K/ul (4.8-10.8)
[2025-07-08 15:36] LABS: Alanine Aminotransferase 20 U/L (7-52); Albumin Globulin Ratio 1.4 (0.9-2); Alkaline Phosphatase 86 U/L (34-104); Anion Gap 8 (3-11); Bilirubin,Total 1.4 mg/dl (0.2-1.0); Blood Urea Nitrogen 12 mg/dl (6-23); Calcium 9.3 mg/dl (8.6-10.3); Carbon Dioxide 27 mmol/L (21-32); Chloride 104 mmol/L (98-107); Creatine Kinase 28 U/L (30-223); Creatinine Clr Calc Pharmacy 79.3 ml/min; Globulin 2.9 gm/dl (2.5-4.0); Glucose 124 mg/dl (70-99(Fasting)); Magnesium 2.2 mg/dl (1.7-2.4); Potassium 3.9 mmol/L (3.5-5.1); Sodium 139 mmol/L (136-145); Total Protein 7.0 gm/dl (6.0-8.3)
[2025-07-08 15:47] LABS: INR 1.1 (0.9-1.1); Prothrombin Time 11.5 Seconds (9.0-12.0)
[2025-07-08 15:51] LABS: Thyroid Stimulating Hormone 1.100 uIu/ml (0.300-4.500)
[2025-07-08 16:26] LABS: Chlamydia pneumoniae PCR Not Detected (NotDetected); Coronavirus 229E PCR Not Detected (NotDetected); Coronavirus CoV-2 (COVID19)PCR Not Detected (NotDetected); Coronavirus HKU1 PCR Not Detected (NotDetected); Coronavirus NL63 PCR Not Detected (NotDetected); Coronavirus OC43PCR Not Detected (NotDetected); Human Metapneumovirus PCR Not Detected (NotDetected); Parainfluenza Virus 1 PCR Not Detected (NotDetected); Parainfluenza Virus 2 PCR Not Detected (NotDetected); Parainfluenza Virus 3 PCR Not Detected (NotDetected); Parainfluenza Virus 4 PCR Not Detected (NotDetected); Respiratory Syncytial VirusPCR Not Detected (NotDetected); Rhinovirus/Enterovirus PCR Not Detected (NotDetected)
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
[2025-07-08 16:52] LABS: Procalcitonin 0.03 ng/ml (0-0.5)
[2025-07-08 17:18] LABS: Lyme Screen Rflx Confirmation Negative (Negative)
[2025-07-08 18:50] LABS: Base Excess VBG 2.4 mEq/L; HCO3 VBG 27 mmol/L; Oxygen Saturation VBG 87.2 %; PCO2 VBG 42 mmHg (38-50); PO2 VBG 53 mmHg; pH VBG 7.42 (7.36-7.41)
[2025-07-08] MEDS: SODIUM CHLORIDE 0.9% 1,000 ML IV SCH (19:25)
[2025-07-08] MEDS: GADOBUTROL 65ML VIAL IV ONE (21:58)
--- NOTE | 2025-07-08 23:04 | Magnetic Resonance Report ---
Exam(s): MRI HEAD W/WO Contrast IV Amt: 7mL Gadavist given existing IV EXAM: MR Head Without and With Intravenous Contrast CLINICAL HISTORY: Reason for exam: worsening confusion, lethargy; ?subacute CVA?. TECHNIQUE: Magnetic resonance images of the head/brain without and with intravenous contrast in multiple planes. CONTRAST: Patient received 7mL Gadavist given existing IV of IV contrast COMPARISON: No relevant prior studies available. FINDINGS: Brain: Subtle T2/FLAIR signal hyperintensity scattered throughout the subcortical and deep white matter consistent very mild ischemic microangiopathy. Subtle area of restricted diffusion within the midbrain consistent with a subacute lacunar infarct. Mild age-appropriate cerebral volume loss. No hemorrhage. Ventricles: Unremarkable. No ventriculomegaly. Bones/joints: Unremarkable. No acute fracture. Sinuses: Unremarkable as visualized. No acute sinusitis. Mastoid air cells: Unremarkable as visualized. No mastoid effusion. Orbits: Unremarkable as visualized. IMPRESSION: Subacute lacunar infarct involving the midbrain Mild ischemic microangiopathy No abnormal parenchymal enhancement identified on this exam. Electronically signed by: Kelby Guerrier MD 07/08/25 23:03 PM
[2025-07-08] MEDS ORDERED: ACETAMINOPHEN 325 MG TAB PO PRN (23:24)
[2025-07-09] MEDS: CLOPIDOGREL BISULFATE 300 MG TAB PO STA (00:42)
[2025-07-09] MEDS: MELATONIN 3 MG TAB PO SCH (00:42)
[2025-07-09] MEDS: ROSUVASTATIN CALCIUM 20 MG TAB PO SCH (00:43)
[2025-07-09] MEDS: ASPIRIN 81 MG ECTAB PO SCH (00:43)
[2025-07-09] MEDS: ONDANSETRON INJ 2 MG/ML 2 ML VIAL IV PRN (04:01)
[2025-07-09 06:08] LABS: Anion Gap 8.0 (3-11); Blood Urea Nitrogen 12.0 mg/dl (6-23); Calcium 8.5 mg/dl (8.6-10.3); Carbon Dioxide 23.0 mmol/L (21-32); Chloride 106.0 mmol/L (98-107); Cholesterol 154.0 mg/dl (0-200); Creatinine Clr Calc Pharmacy 84.9 ml/min; Glucose 114.0 mg/dl (70-99(Fasting)); HDL Cholesterol 37.0 mg/dl; Potassium 4.1 mmol/L (3.5-5.1); Sodium 137.0 mmol/L (136-145); Triglycerides 98.0 mg/dl (0-150)
[2025-07-09] MEDS: THIAMINE HCL 500 MG in SODIUM CHLORIDE 0.9% 50 ML IV SCH (09:31)
[2025-07-09] MEDS: CYANOCOBALAMIN (B-12) 500 MCG TABLET PO SCH (09:32)
[2025-07-09] MEDS: CLOPIDOGREL BISULFATE 75 MG TAB PO SCH (09:32)
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
[2025-07-09] MEDS: ENOXAPARIN INJ 40 MG/0.4 ML SYR SQ SCH (14:20)
[2025-07-09 14:26] LABS: Appearance Urine Clear (Clear); Glucose Urine UA Negative (Negative)
--- NOTE | 2025-07-09 15:03 | XCELERA ---
[id number]
[2025-07-09] MEDS: OPTIRAY 320 125ml IV ONE (15:15)
--- NOTE | 2025-07-09 15:39 | CT Scan Report ---
CT ANGIOGRAM OF THE BRAIN CLINICAL HISTORY: Stroke. COMPARISON STUDY: CT and MRI of the brain dated 07/08/2025. CT angiogram of the brain dated 06/18/2025. TECHNIQUE: Following the IV administration of 120 cc of Optiray 320, CT angiogram of the brain was pe rformed from the skull base to the vertex. Images are reviewed in the axial, sagittal, and coronal pl anes. 3-D MIPS images are created and assessed. IV contrast was administered without complication. A dose lowering technique was utilized adhering to the principles of ALARA. FINDINGS: Brain parenchyma: There is age related involutional change noting mild subcortical and periventricula r microangiopathic disease. There is no evidence of hemorrhage or mass effect noted angiographic phas e technique. There is no evidence of enhancing mass lesion on the angiogram phase images. No extra-ax ial fluid collection is seen. Medel-white matter differentiation is preserved. Ventricles, sulci, and cisterns: Prominent secondary to involutional change. CT angiogram of the brain: There is atherosclerotic calcification of the cavernous carotid arteries. The internal carotid arteries at the skull base are patent, as are the anterior and middle cerebral a rteries. The vertebrobasilar system and posterior cerebral arteries are patent. The right vertebral a rtery is dominant. There is origin of the left posterior cerebral artery. A posterior communica ting artery is seen on the right. There is no aneurysm, high-grade stenosis, or focal vessel cutoff i dentified throughout the intracranial circulation. Dural sinuses: Clear as visualized. Orbits: The bony orbits are intact. The orbital contents are normal as visualized. Sinuses and mastoids: The visualized paranasal sinuses are clear. The mastoid air cells are well pneu matized. Calvarium: Unremarkable. IMPRESSION: 1. There is no evidence of hemorrhage or mass effect noting angiographic phase technique. 2. Yesterday's MRI of the brain was reviewed. The apparent focus of restricted diffusion in the midbr ain is likely artifactual and has been present on older prior examinations. There is no convincing MR I evidence of acute ischemia on yesterday's examination. 3. Unremarkable CT angiogram of the brain. ACT 112: Negative or not required by law. Electronically signed by: Guido Zelaya M.D. 07/09/2025 3:37 PM
--- NOTE | 2025-07-09 16:07 | CT Scan Report ---
CT angio neck with con CLINICAL HISTORY: 79 years-old Male with midbrain CVA. Acute stroke like symptoms COMPARISON STUDY: Brain MRI 07/08/2025, CT neck 06/18/2025 TECHNIQUE: Following the IV administration of 120 mL of Optiray, CT angiogram of the neck was perform ed from the aortic arch to the skull base. Images are reviewed in the axial, sagittal, and coronal pl anes. 3-D MIPS images are created and assessed. IV contrast was administered without complication. Al l measurements were calculated based on NASCET criteria. A dose lowering technique was utilized adhe ring to the principles of ALARA. CT DOSE: 477.18 mGy.cm FINDINGS: Mild emphysema is again seen within the visualized lung apices. No cervical lymphadenopathy is presen t. There are no cervical spine fracture. Calcified plaque within the proximal right subclavian artery results in moderate stenosis. There is extensive plaque within the proximal right internal carotid a rtery which results in 60% stenosis (new focus of linear artifact is seen within the proximal cervica l segment right ICA on image 213 series 4). There is moderate plaque within the proximal left interna l carotid artery which results in 40% stenosis. There is moderate stenosis at the origin the right ve rtebral artery. No stenoses within the left vertebral artery is present. These findings are stable fr om prior. There is no aneurysm or dissection within the neck. IMPRESSION: 1. Stable exam compared to the study from 06/18/2025. 2. 60% stenosis of the proximal cervical segment right ICA secondary to atherosclerosis redemonstrate d. 3. No high-grade stenosis or arterial occlusion. ACT 112: Negative or not required by law. The above report was generated using voice recognition software. It may contain grammatical, syntax o r spelling errors. Electronically signed by: Dario Beasley M.D. 07/09/2025 4:05 PM
[2025-07-10 07:30] LABS: Anion Gap 5.0 (3-11); Blood Urea Nitrogen 10.0 mg/dl (6-23); Calcium 8.3 mg/dl (8.6-10.3); Carbon Dioxide 27.0 mmol/L (21-32); Chloride 107.0 mmol/L (98-107); Creatinine Clr Calc Pharmacy 66.1 ml/min; Glucose 117.0 mg/dl (70-99(Fasting)); Potassium 4.2 mmol/L (3.5-5.1); Sodium 139.0 mmol/L (136-145)
--- NOTE | 2025-07-10 18:43 | Neurology Consultation ---
Date of Consultation July 10, 2025 Assessment & Plan (1) Stroke: (2) Dementia: Plan 79-year-old male with a history of subacute neurocognitive decline over the past few months, suspected vascular dementia, presenting with fluctuating mental status, inattentiveness, restlessness. Recent brain MRI potentially consistent with a small subacute acute ischemic infarct within the midbrain. This finding may explain his subacute decline. He has an incidental 60% stenosis of the proximal right internal carotid artery. No other vascular lesion identified on CTA of the head and neck. Continue with aspirin and Plavix as ordered. Will continue with dual antiplatelet therapy for 3 weeks, afterwards, continue with Plavix 75 mg/day. Continue with Crestor as ordered. Goal LDL 70 or less. Blood pressure management per stroke protocol. Consider starting memantine to address his dementia. Would start with 5 mg/day for 1 week, then increase to 5 mg twice daily thereafter. Further dosage adjustments can be made in the outpatient setting. Please call with any questions. History of Present Illness Reason for Consultation: Dementia, possible stroke Requesting Physician: Demetrio Attending Physician: Billy Atkinson MD History of Present Illness The patient is an 79-year-old male whom I had seen in clinic on June 25, 2025 for an initial assessment of probable dementia, mixed type. His cognitive decline has been persistent and progressive, notably over the past few months. Please refer to my clinic note for further details. I had recommended a trial of donepezil at that time. He presented to the emergency department on July 08 with waxing and waning altered mental status. A CT of the head was negative for acute process. MRI of the brain revealed chronic cerebrovascular disease as well as a possible subacute lacunar infarct within the midbrain. I did independently review these images and was able to appreciate these findings. Also noted was mild generalized atrophy. CTA of the head and neck was completed yesterday. No significant intracranial vascular abnormality identified. There is a 60% stenosis of the proximal right internal carotid artery, no other significant vascular abnormalities identified. The donepezil have been discontinued prior to his admission to the hospital due to excessive somnolence. I evaluated the patient with his spouse and daughter at bedside. He is sitting up, did not finish his dinner, seems inattentive, fidgety, poor eye contact, no spontaneous speech. He is an extremely limited historian Allergies Allergy/AdvReac Type Severity Reaction Status Date / Time No Known Allergies Allergy Verified 07/08/25 16:33 Home Medications Medication Instructions Recorded Confirmed Type ascorbic acid (vitamin C) 500 mg 1,000 mg PO BID 04/07/20 07/08/25 History tablet potassium gluconate 595 mg (99 mg) 595 mg PO QDL 04/07/20 07/08/25 History tablet BiPap Machine #1 ea 03/16/21 07/08/25 Rx zinc gluconate 50 mg tablet 50 mg PO QDL 12/19/22 07/08/25 History lisinopril 5 mg tablet 5 mg PO QAM 06/18/25 07/08/25 History zoledronic acid 5 mg/100 mL in 1 ea IV YEARLY 06/18/25 07/08/25 History mannitol 5 %-water intravenous piggybck (Reclast) magnesium glycinate 100 mg (as 100 mg PO DAILY 06/25/25 07/08/25 History glycinate) tablet vit D3 50 mcg-vitamin K1 500 1 cap PO DAILY 06/25/25 07/08/25 History mcg-MK4 1,500 mcg-MK7 180 mcg capsule Hospital Bed Homecare (Hospital #1 ea 07/07/25 07/08/25 Rx Bed) cholecalciferol (vitamin D3) 125 125 mcg PO BID 07/08/25 07/08/25 History mcg (5,000 unit) tablet (Vitamin D3) Patient History Medical History Age related osteoporosis Mitral valve disorder Inhibited sexual excitement Diverticulosis Adenomatous colon polyp Surgical History History of surgery Hx of colonoscopy (~2018) History of aortic valve replacement (~2011) History of excision of lesion History of excision of pilonidal cyst Family History Father Stroke syndrome Myocardial infarction Mother Alzheimer disease Brother No problems noted. Brother Myocardial infarction Brother Medical history unknown Sister No problems noted. Sister Medical history unknown Son No problems noted. Son No problems noted. Son No problems noted. Daughter No problems noted. Denies family history of Ovarian cancer Prostate cancer Breast cancer Colorectal cancer Social History Smoking Status: Former smoker Tobacco Type: Cigarettes Age Started Using Tobacco: 13; Age Quit Using Tobacco: 34; packs per day: 1; Second Hand Exposure: No; Do You Dip or Chew Tobacco: No; Tobacco Cessation Education Requested by Patient: No Hx Alcohol Use: No Hx Substance Use: No Preferred Language: Turkmen Communication Ability: Impaired Visual Impairment: No Limitations Hearing Ability: Normal Director [employer] Required: No Beliefs That Will Affect Care: None marital status: Current Living Situation: Spouse and Other current occupational status: retired current occupation: Worked at [employer] Other Information That Helps Us Care for You: No Feels Safe at Home: Yes Safety Concerns: Feels Safe At This Time Childhood Exposure to Second-Hand Smoke: Yes Diet: other and regular caffeine: No during the past year weight has: remained stable Dental Care, Regularly: Yes Physical Activity Frequency: 1-2 Times per Week Physical Activity Frequency Comment: walkl as able Seatbelt Use: always Sunscreen Use: No Do you think of yourself as: straight/heterosexual Assistive Devices: CPAP and Glasses Review of Systems Constitutional: no fever Eyes: no blind spots and no diplopia Respiratory: no cough Cardiovascular: no chest pain and no palpitations Gastrointestinal: no vomiting Genitourinary: no dysuria Musculoskeletal: no myalgia Integumentary: no rash Neurologic: as per Subjective / HPI Psychiatric: no depression, no anxiety and no hallucinations Hematologic / Lymphatic: no easy bleeding and no easy bruising Exam (Neuro) Constitutional: well developed and + thin; no acute distress Eyes: normal visual pizano by confrontation, PERRL and EOM intact bilaterally; no nystagmus Neurologic: Oriented to:: Person; negative Place or Time Cognitive Function: negative Abstraction, Calculations or Cognitive Speed Memory: negative Short Term Intact Attention: negative Span Intact Speech Fluency: Slowed; negative Dysarthria or Dysfluency Speech Aphasia: negative Aphasia Fund of Knowledge: Past History and Vocabulary; negative Current Events Cr anial Nerves: Normal II, III, IV, , V, VII, VIII, IX, X, XI and XII Motor Strength: Normal Lower Extremities and Normal Upper Extremities Motor Tone: Normal Lower Extremities and Normal Upper Extremities Muscle Bulk/Involuntary Movements: No Involuntary Movements; negative Muscle Atrophy Sensation: Light Touch Intact, Pain/Temperature Intact, Vibration Intact and Proprioception Intact Coordination: Limited Balance; negative Dysdiadochokinesia, Finger- Nose Abnormal or Heel-Jackson Abnormal Deep Tendon Reflexes: Rt Triceps: 2+, Lt Triceps: 2+, Rt Biceps: 2+, Lt Biceps: 2+, Rt Brachioradialis: 2+, Lt Brachioradialis: 2+, Rt Patellar: 2+, Lt Patellar: 2+, Rt Ankle: 2+ and Lt Ankle: 2+ Gait: Stooped; negative Shuffling Results & Data Vital Signs (Past 12 Hours) Vital Signs Temp Pulse Pulse Resp BP Pulse Ox O2 Del Method 07/10/25 15:36 36.4 C L 66 20 116/65 97 Room Air 07/10/25 15:16 72 07/10/25 11:00 36.6 C 68 18 141/74 H 97 Room Air 07/10/25 08:00 47 L 07/10/25 08:00 36.6 C 74 18 159/84 H 97 Room Air Laboratory Results WBC 10.55, hemoglobin 16.0, hematocrit 46.3, platelet count 153, ESR 11, sodium 139, potassium 4.2, BUN 10, creatinine 0.89, glucose 117, calcium 8.3, AST 17, ALT 20, triglycerides 98, cholesterol 154, LDL 97, HDL 37, vitamin B12 270, TSH 1.100 Diagnostic Findings An echocardiogram reveals normal ventricular size, hyperdynamic systolic function, EF greater than 70%, no regional wall motion abnormalities, mild concentric LVH. Left atrial size normal. No ASD. An electrocardiogram reveals a normal sinus rhythm with sinus arrhythmia. Coding Level of Care Code 08130 INT INP/OBS CARE 3/75MIN Diagnoses Stroke I63.9 Dementia F03.90 Time Spent (min) 75 Comment Total time includes patient contact, chart review, counseling, note preparation
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
--- NOTE | 2025-07-11 05:27 | Electrocardiogram Report ---
Test Reason : Blood Pressure : */* mmHG Vent. Rate : 64 BPM Atrial Rate : 64 BPM P-R Int : 186 ms QRS Dur : 78 ms QT Int : 406 ms P-R-T Axes : -12 -8 -24 degrees QTcB Int : 418 ms Normal sinus rhythm with sinus arrhythmia Inferior infarct , age undetermined Abnormal ECG When compared with ECG of 18-Jun-2025 10:42, Inferior infarct is now Present Nonspecific T wave abnormality now evident in Inferior leads QT has lengthened Confirmed by Tom Magana ([id number]) on 07/11/2025 5:27:08 AM Referred By: REFERRED SELF Confirmed By: Tom Magana
[2025-07-11 07:11] VITALS: PULSE 66
[2025-07-11 09:02] VITALS: RESP 18; TEMP 97.9; O2SAT 96
--- NOTE | 2025-07-11 09:17 | Neurology Progress Note ---
Date of Service July 11, 2025 Assessment & Plan (1) Stroke: (2) Dementia: Plan 79-year-old male with suspected vascular dementia, presenting with progressive subacute decline in cognitive functioning, appears to have a subacute midbrain stroke on MRI which could explain his further neurocognitive decline. He does appear a bit more attentive this morning, remains confused, appears to have apraxia when manipulating eating utensils, exhibits minimal spontaneous speech although appears to readily recognize family members and greets them with "hello, how are you?" Otherwise, is fairly quiet, somewhat inattentive, fidgety. He appears to have an element of abulia, although again, appears slightly improved compared with yesterday. Continue with dual antiplatelet therapy, plan for 3 weeks, afterwards transition to Plavix monotherapy. Continue with Crestor as ordered, goal LDL 70 or less. Blood pressure management per stroke protocol. History of intolerance to donepezil. May consider starting memantine, could be done while at [facility] or in the outpatient setting. Patient may follow-up with myself or an KEEGAN in neurology clinic in 2 to 3 weeks after discharge. Please call with any questions. Admission and Anticipated Discharge Date Admission Date: July 08, 2025 Subjective Follow-up, stroke, dementia The patient seems a bit more attentive this morning, remains mildly confused, limited spontaneous speech, exhibits some difficulty eating and manipulating silverware. Does not have any complaints. Family at bedside. Results & Data Vital Signs (Past 12 Hours) Vital Signs Temp Pulse Pulse Resp BP Pulse Ox Pulse Ox 07/11/25 09:01 36.6 C 66 18 136/65 96 07/11/25 07:10 66 07/11/25 04:39 36.4 C L 53 L 17 132/64 97 07/11/25 02:57 67 07/11/25 01:23 07/11/25 00:36 36.4 C L 64 17 134/64 96 07/10/25 23:00 96 O2 Del Method O2 Del Method 07/11/25 09:01 Room Air 07/11/25 07:10 07/11/25 04:39 Room Air 07/11/25 02:57 07/11/25 01:23 Room Air 07/11/25 00:36 Room Air 07/10/25 23:00 Room Air Diagnostic Findings Brain MRI reveals a probable subacute ischemic infarct within the midbrain, chronic cerebrovascular disease, and generalized atrophy. CTA of the head and neck reveals a 60% stenosis of the proximal right ICA. Exam (Neuro) Neurologic: Oriented to:: Person; negative Place or Time Cognitive Function: negative Attention, Insight or Cognitive Speed Cortical Function: Motor Apraxia Memory: negative Short Term Intact Speech Fluency: Limited Comprehension, Slowed and Other (Limited spontaneous speech) Fund of Knowledge: Vocabulary Cranial Nerves: Normal II, III, IV, , V, VII, VIII, IX, X, XI and XII Motor Strength: Normal Lower Extremities and Normal Upper Extremities Muscle Bulk/Involuntary Movements: No Involuntary Movements Coding Level of Care Code 28027 SUB INP/OBS CARE 2/35MIN Diagnoses Stroke I63.9 Dementia F03.90 Time Spent (min) 40 Comment Total time includes patient contact, chart review, counseling, note preparation
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
[2025-07-11 10:14] VITALS: BP 122/69
== END 2025-07-11 11:18 | DRG 66 ==
LOC: ED 13:35 → 2E 18:54